=== PATIENT | male | born 1950 | race Caucasian/White ===

== ENCOUNTER 2018-12-10 05:37 | Emergency (ER) | payer MEDICARE, OTHER ==
[~2018-12-10] VITALS: Ht 167.6 cm; Wt 93.0 kg
[~2018-12-10 05:37] MED LIST: ASCORBIC ACID500 M3 PO; ASPIRIN EC81 MG PO; AUGMENTIN 875-1 EACH PO; AVAPRO300 MG PO; B-12500 MCG PO; BICALUTAMIDE50 MG PO; CARDURA1 MG PO; CIPROFLOXACIN250 MG PO; CO Q-10100 MG PO; COLACE100 MG PO; COQ10 SG 100 S1 EACH PO; COZAAR100 MG PO; DILTIAZEM 24HR240 MG PO; DILTIAZEM ER240 MG PO; DOXYCYCLINE HY100 MG PO; DOXYCYCLINE MO100 MG PO; HYDROCHLOROTHIA25 MG PO; HYPROST1 EACH PO; MAGNESIUM CITR296 ML PO; NORCO 5-325 TA1 EACH PO; OXYBUTYNIN CHLOR5 MG PO; OXYCODONE HCL5 MG PO; PROSCAR5 MG PO; THERALITH XR T1 EACH PO; TOLTERODINE TART4 MG PO; TURMERIC500 M2 PO; VITAMIN C WITH500 MG PO
[2018-12-10] MEDS ORDERED: CAL MAG ZINC +1 EAC1 PO (05:48)
[2018-12-10] MEDS ORDERED: VITAMIN E100 UNI3 PO (05:49)
[2019-03-07] MEDS ORDERED: CASODEX50 MG PO (14:34)
[2019-03-07] MEDS ORDERED: VITAMIN C500 M1 PO (15:11)
[2019-03-09] MEDS ORDERED: ASPIRIN81 MG PO (09:33)
[2019-03-09] MEDS ORDERED: LIPITOR40 MG PO (09:34)
== END 2018-12-10 06:56 | disposition home or self-care (01) ==
LOC: ED 05:37
DX: R04.0 Epistaxis (principal); I10 Essential (primary) hypertension; Z79.899 Other long term (current) drug therapy
CPT/HCPCS: 30901; 85025; 85610; 85730; 99283-25

== ENCOUNTER 2020-07-01 19:01 | Emergency (ER) | payer MEDICARE, OTHER ==
[~2020-07-01] VITALS: Ht 167.6 cm; Wt 90.9 kg
[~2020-07-01 19:01] MED LIST changes: +ASPIRIN81 MG PO; +CAL MAG ZINC +1 EAC1 PO; +CASODEX50 MG PO; +LIPITOR40 MG PO; +VITAMIN C500 M1 PO; +VITAMIN E100 UNI3 PO
[2020-07-01] MEDS ORDERED: AUGMENTIN 875-1 EACH PO (22:43)
== END 2020-07-01 23:00 | disposition home or self-care (01) ==
LOC: ED 19:01
DX: S02.2XXA Fracture of nasal bones, initial encounter for closed fracture (principal); W22.8XXA Striking against or struck by other objects, initial encounter; I10 Essential (primary) hypertension; Z79.899 Other long term (current) drug therapy; Z85.46 Personal history of malignant neoplasm of prostate
CPT/HCPCS: 70450; 70486; 90471; 90715; 99284-25

== ENCOUNTER 2021-03-14 14:18 | Emergency (ER) | payer MEDICARE, OTHER ==
[2021-03-14] MEDS ORDERED: FUROSEMIDE20 MG PO (14:40)
[2021-03-14] MEDS ORDERED: DILTIAZEM ER360 MG PO (14:41)
[2021-03-14] MEDS ORDERED: IRBESARTAN300 MG PO (14:41)
[2021-03-14] MEDS ORDERED: ATORVASTATIN CA40 MG PO (14:41)
[2021-03-14] MEDS ORDERED: HYDROCHLOROTHIA25 MG PO (14:41)
--- NOTE | 2021-03-15 21:57 | EKG ---
[facility] [address] [place] [address] Signed Wide QRS rhythm Minimal voltage criteria for LVH, may be normal variant ( Peter product ) Septal infarct , age undetermined Inferior infarct , age undetermined Abnormal ECG When compared with ECG of 07-MAR-2019 07:17, Wide QRS rhythm has replaced Sinus rhythm Confirmed by LEON RICHTER MD ([id number]) on 03/15/2021 9:57:17 PM Electronically Signed By: LEON RICHTER MD 03/15/21 2157 PATIENT NAME: DANNA ORDOÑEZ ELVI Electrocardiogram DATE OF : 50 PHYSICIAN: LEON RICHTER MD REPORT #: [id number] REPORT IS CONFIDENTIAL AND NOT TO BE RELEASED WITHOUT AUTHORIZATION
== END 2021-03-14 17:00 | disposition home or self-care (01) ==
LOC: ED 14:18
DX: G45.9 Transient cerebral ischemic attack, unspecified (principal); I10 Essential (primary) hypertension; Z79.82 Long term (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 aspirin
CPT/HCPCS: 70450; 70496; 70498; 71045; 80053; 85025; 85610; 85730; 93005; 93010; 99284-25; Q3014; Q9967

== ENCOUNTER 2022-01-25 00:41 | Emergency (ER) | payer MEDICARE, OTHER ==
[~2022-01-25] VITALS: Ht 167.6 cm; Wt 90.9 kg
[~2022-01-25 00:41] MED LIST changes: +AMIODARONE HCL200 MG PO; +ATORVASTATIN CA40 MG PO; +DILTIAZEM ER360 MG PO; +DILTIAZEM HCL120 MG PO; +DILTIAZEM HCL60 MG PO; +FUROSEMIDE20 MG PO; +IRBESARTAN300 MG PO; +POTASSIUM CHLO10 ME1 PO; +POTASSIUM CHLO20 ME2 PO; +TORSEMIDE20 MG PO; +VITAMIN C1000 MG PO; -VITAMIN C500 M1 PO; +WARFARIN SODIUM5 MG PO
[2022-01-25] MEDS ORDERED: MACROBID 100 M100 MG PO ×2 (03:32→17:01)
[2022-01-25] MEDS ORDERED: DITROPAN XL5 MG PO ×2 (03:35→17:02)
[2022-01-25] MEDS ORDERED: PYRIDIUM200 MG PO (03:35)
[2022-01-25] MEDS ORDERED: PHENAZOPYRIDIN200 MG PO (17:02)
[2022-01-26] MEDS ORDERED: CO Q-10100 MG (09:25)
[2022-01-26] MEDS ORDERED: COQ-10100 MG PO (09:26)
== END 2022-01-25 04:27 | disposition home or self-care (01) ==
LOC: ED 00:41
DX: N39.0 Urinary tract infection, site not specified (principal); N13.30 Unspecified hydronephrosis; I10 Essential (primary) hypertension; Z86.73 Personal history of transient ischemic attack (TIA), and cerebral infarction without residual deficits; Z79.899 Other long term (current) drug therapy
CPT/HCPCS: 36415; 51798; 74176; 80053; 81001; 85025; 87088; 99284-25; J7121

== ENCOUNTER 2022-01-25 16:38 | Inpatient (IN) | payer MEDICARE, OTHER ==
[~2022-01-25] VITALS: Ht 167.6 cm; Wt 85.3 kg
[~2022-01-25 16:38] MED LIST changes: +DITROPAN XL5 MG PO; +MACROBID 100 M100 MG PO; +PYRIDIUM200 MG PO
--- OUTSIDE RECORDS SUMMARY | 2022-01-25 16:46 | XMS ---
PreManage Notification: DANNA ORDOÑEZ Security Client Support Coordinator Events No recent Security Events currently on file CRITERIA MET - [facility] - 2 Visits in 30 Days CARE PROVIDERS [facility] Current PHONE: Unknown Jair has no Care Guidelines for this patient. EReanna VISIT COUNT (12 MO.) 3 [facility] TOTAL 3 NOTE: Visits indicate total known visits. 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
[2022-01-25] MEDS ORDERED: MACROBID 100 M100 MG PO (17:01)
[2022-01-25] MEDS ORDERED: DITROPAN XL5 MG PO (17:02)
[2022-01-25] MEDS ORDERED: PHENAZOPYRIDIN200 MG PO (17:02)
--- NOTE | 2022-01-25 20:02 | NUR ---
BEDSIDE REPORT FROM ER NURSE. THIS NURSE TRANSPORTING PATIENT TO ROOM 121 MED-SURG. HANDOFF DONE PER [facility] POLICY WITH FLOWSHEET.
--- NOTE | 2022-01-25 20:15 | NUR ---
pt ARRIVED TO [facility] FLOOR FROM ED STRETCHER WITH PRIMARY RN TRISTON. pt AWAKE AND RESTING IN BED, ALSO IN ROOM. ADMISSION COMPLETE. pt REPORTS NEED TO VOID, UP 1PA TO BCS. SMALL INCONTINENT NOTED IN BRIEFS ALONG WITH SCANT DRIBBLING ON FLOOR. NO VOID IN COMMODE. SCHEDULED MEDS AND IV FLUIDS GIVEN-SEE EMAR. IV SITE WNL, BRISK BLOOD RETURN NOTED. PRN TYLENOL ALSO GIVEN FOR GENERAL ACHES AND PAIN IN BACK REPORTS 05/09. BED ALARM RESUMED FOR SAFETY AND pt ORIENTED TO ROOM WITH CALL LIGHT IN REACH. pt REPORTS USING CPAP MACHINE, TO BRING IT IN TOMORROW MORNING. PER , "HE'LL SKIP IT SOMETIMES IF WE'RE LIKE ON VACATION". HOSPITAL PROVIDED CPAP OFFERED, BUT DECLINED BY pt. WILL MONITOR.
--- NOTE | 2022-01-25 21:45 | NUR ---
PATIENT CALLING FREQUENTLY TO USE BSC, FEELS URGENCY TO URINATE. PATIENT COMPLAINTS OF BURNING FEELING. ADMINISTERED AZO PER MAR PO AND MELATONIN PO TO ASSIST WITH SLEEP. PATIENT MARI PAD CHANGED. PROVIDED EDUCATION ON SYMPTOMS OF UTI, AND THE POSSIBLE INCREASED FEELINGS OF URGENCY. PATIENT VERBALIZED UNDERSTANDING. WHEN UP TO BSC, PATIENT NOT FOLLOWING DIRECTION WELL, APPEARS CONFUSED. NEEDS 1 PERSON STBY ASSIST. BED ALARM ON. CALL TO DR. ROMEO VERIFIED NO ORDER FOR TELE, AND ADDRESSED PATIENT'S REQUEST FOR PATIENT TO HAVE AMBRIZ. BLADDER SCAN REFLECTED <[address] RICHTER VERBALIZED NO AMBRIZ AT THIS TIME. AT BASELINE PATIENT IS INCONTINENT 95% OF THE TIME. UPDATED PATIENT'S WHO VERBALIZED UNDERSTANDING.
--- NOTE | 2022-01-25 22:44 | NUR ---
PATIENT SLEEPING WITH EYES CLOSED. APPEARS RELAZED. CALL LIGHT WITHIN REACH. BED ALARM ON.
--- NOTE | 2022-01-25 23:30 | NUR ---
ROUNDING ON PATIENT AND NOTED APPEARED RESTLESS. PATIENT REQUESTED TO GET UP TO BSC. PROVIDED ASSISTANCE. ATTEND AND INSERT PAD SATURATED WITH URINE. PATIENT FOLLOWING DIRECTIONS IMPROVED. PATIENT STATES " I THINK I AM STARTING TO FEEL BETTER". ORAL TEMP 99.6, NOTED PILLOW CASE SATURATED WITH MOISTURE. CHANGED PILLOWCASE. PATIENT SKIN FEELS COOL TO TOUCH.
--- NOTE | 2022-01-26 00:03 | NUR ---
PATIENT CALLED TO GET UP TO BSC. TRANSFERED WITH KISHAN LITTLEJOHN. ATTEND SATURATED WITH URINE, FOUL ODOR, APPEARS DARK YELLOW STAINING IN PAD. BACK TO BED, BED ALARM ON. NO OTHER NEEDS AT THIS TIME.
--- NOTE | 2022-01-26 00:16 | NUR ---
NOTIFIED DR. RICHTER THAT HR CONTINUES TO SUSTAIN IN 120s, FLUCTUATING BRIEFLY INTO THE LOW 100'S THEN INCREASES BACK TO 120s. NEW ORDER TO ADMINISTER ADDITIONAL 1X DOSE OF LOPRESSOR 5MG IV.
--- NOTE | 2022-01-26 01:51 | NUR ---
PATIENT UP TO BSC, PAD SATURATED. PROVIDED MARI CARE AND NEW MARI PAD. PATIENT BACK TO BED, DENIES ANY OTHER NEEDS. BED ALARM ON, CALL LIGHT WITHIN REACH.
--- NOTE | 2022-01-26 01:56 | NUR ---
PATIENT AFEBRILE, APPEARS TO BE FOLLOWING DIRECTIONS WITH STBY ASSIST TO BSC. URINATING FREQUENTLY, INCONTINENT. IV FLUIDS INFUSING D5 1/2 NS @ 100 ML/HR. LUNG SOUNDS DIMINISHED IN BASES, NOTED FINE CRACKLES ON LLL. PATIENT DENIES ANY NEEDS AT THIS TIME, APPEARS TO BE RESTING BACK WITH EYES CLOSED. BED ALARM ON, CALL LIGHT WITHIN REACH. HAS BEEN CALLING KERRI.
--- NOTE | 2022-01-26 03:35 | NUR ---
IN TO ASSIST PT WITH ATTENDS
--- NOTE | 2022-01-26 05:12 | NUR ---
PATIENT CALLED TO GET UP TO BSC, PATIENT TRANSFERED, APPEAING INCREASED STEADINESS ON FEET. VS WNL. MARI PAD SATURATED WITH ORANGE URINE. CHANGED LINEN. LUNG SOUNDS DIMINISHED THROUGHOUT. NO COMPLAINTS OF PAIN, AFEBRILE. LAB INTO ROOM TO DRAW PATIENT LABS.
--- NOTE | 2022-01-26 07:03 | NUR ---
REPORT RECEIVED FROM CARMEN GOLDSTEIN. PT RESTING IN BED, AWAKE AND ALERT. PT SATURATED WITH URINE. PUMP ALARMING, IV FLUIDS COMPELTE. PT UP TO RESTROOM WITH STAND BY ASSIST FOR LINE AND TUBE MANAGEMENT, BMAT LEVEL 3. PT VOIDS ADDITOINAL 100ML ORANGE URINE. MARI CARE DONE. DEPENDS CHAGNED. PT UP TO CHAIR. WARM BLANKETS PROVIDED. NEW IV FLUIDS HUNG. PT DENIES ADDITIONAL REQUESTS OR COMPLAINTS. CALL LIGHT WIHTIN REACH.
--- NOTE | 2022-01-26 07:38 | NUR ---
PT ASLEEP IN BED. WHITE BOARD UPDATED. CALL LIGHT IN REACH. NO FURTHER NEEDS AT THIS TIME.
--- NOTE | 2022-01-26 07:55 | EKG ---
[facility] [address] [place] [place] [address] Signed Normal sinus rhythm Left axis deviation Nonspecific intraventricular block Minimal voltage criteria for LVH, may be normal variant ( [place] product ) Inferior infarct , age undetermined Cannot rule out Anterior infarct , age undetermined T wave abnormality, consider lateral ischemia Abnormal ECG When compared with ECG of 14-MAR-2021 14:23, Sinus rhythm has replaced Wide QRS rhythm Vent. rate has increased BY 41 BPM Confirmed by LEON RICHTER MD ([id number]) on 01/26/2022 7:55:15 AM Electronically Signed By: LEON RICHTER MD 01/26/22 0755 PATIENT NAME: DANNA ORDOÑEZ ELVI Electrocardiogram DATE OF : 50 PHYSICIAN: LEON RICHTER MD REPORT #: [id number] REPORT IS CONFIDENTIAL AND NOT TO BE RELEASED WITHOUT AUTHORIZATION
--- NOTE | 2022-01-26 08:34 | NUR ---
MORNING ASSESSMENT AND MEDICAITON DUE. PT FOUND UP IN RESTROOM ON HIS OWN ATTEMPTING TO CHANGE HIS BRIEF. PT EDUCATION DONE REGARDING FALL PREVENTION. PT ASSISTED WITH MARI CARE AND DEPENDS CHANGE. STAND BY ASSIST BACK TO CHAIR. CHAIR ALARM PLACED. PT DENIES PAIN AND NAUSEA. PT ALERT AND OREINTED TO ALL. PT MILDY SLOW TO RESPOND. TREMORS NOTED IN BILATERAL HANDS. PT REPORTS TREMORS HAVE BEEN INCREASING LATELY. GENERALIZED WEAKNESS AND UNSTEAEDINESS ON FEET. DRESSING TO IV SITE LOOSE, DRESSING CHANGED PER PROTOCOL. LUNG SOUNDS CLEAR, HEART TONES REGULAR, MURMUR HEARD. ABDOMEN SOFT AND NON TENDER. BOWEL TONES ACTIVE. PT REPORTS MILD ABDOMINAL SWELLING. PT CONTINUES TO BE INCONTANT. PT DENIES BURNING WITH URINATION. DR RICHTER TO BEDSIDE TO REVIEWED PLAN OF CARE AND ROUND ON PT. PTS ARRIVED TO BEDSIDE, PT AND UPDATED ON PLAN OF CARE AND STATE THEIR QUESTIONS HAVE BEEN ANSWERED. PT EATING BREAKFAST. NO ADDITONAL REQUESTS OR COMPLAINTS. CALL LIGHT WITHIN REACH. CHAIR ALARM ON.
[2022-01-26] MEDS ORDERED: CO Q-10100 MG (09:25)
[2022-01-26] MEDS ORDERED: COQ-10100 MG PO (09:26)
--- NOTE | 2022-01-26 09:35 | NUR ---
PT CALLED TO USE RESTROOM. NOW BACK TO CHAIR VISITING WITH FAMILY IN THE ROOM. CALL LIGHT IN REACH. NO FURTHER NEEDS AT THIS TIME.
--- NOTE | 2022-01-26 10:06 | NUR ---
THIS RN TO ROOM TO CHECK ON PT. PT UP TO RESTROOM WITH STAND BY ASSIST, DEPENDS CHANGED. MARI CARE DONE BY PT WITH MINIMAL ASSISTANCE. PT INCONTINANT ONCE AGAIN. STAND BY ASSIST BACK TO CHAIR. IV FLUID RATE CHANGED PER MD ORDER. PT DENIES PAIN AND NASUEA. NO ADDITONAL REQUESTS OR COMPLAINTS. CALL LIGHT WITHIN REACH. CHAIR ALARM ON.
--- NOTE | 2022-01-26 10:28 | NUR ---
THIS RN TO ROOM TO CHECK ON PT. PT REMAINS UP TO CHAIR, FINISHED WITH BREAKFAST. ICE WATER REFILLED.PT DENIES PAIN AND NAUSEA. DEPENDS DRY AT THIS TIME. NO ADDITIONAL REQUESTS OR COMPLAINTS. CALL LIGHT ISHA HARGROVE. CHAIR ALARM ON.
--- NOTE | 2022-01-26 10:53 | NUR ---
CHAIR ALARM SOUNDING. PT UP IN ROOM TYRING TO GO TO RESTROOM, CAUGHT UP IN IV LINE. THIS RN TO ROOM, 1 PERSON ASSIST TO RESTROOM FOR LINE AND TUBE MANAGEMENT. PT VOIDS 25 IN URINAL. DEPENDS WET. MARI CARE DONE. DEPENDS CHANGED. 1 PERSON ASSIST BACK TO CHAIR. CHAIR ALARM ON. CALL LIGHT WITHIN REACH. PT DENIES ADDITIONAL REQUESTS OR COMPLAINTS.
--- NOTE | 2022-01-26 11:30 | NUR ---
THIS RN TO ROOM TO CHECK ON PT. PT RESTING IN CHAIR WITH EYES CLOSED. RESPRIATIONS EVEN AND UNLABORED. CHAIR ALARM ON. PT ALLOWED TO REST. CALL LIGHT WITHIN REACH.
--- NOTE | 2022-01-26 11:55 | NUR ---
LUNCH DELIVERED TO PT. PT UP TO CHAIR, AWAKENS WITH MOVEMENT IN THE ROOM. PT ASSISTED WITH MEAL TRAY PREP. PT FEEDING SELF. PT DENIES PAIN AND NAUSEA. NO ADDITIONAL NEEDS AT THIS TIME. CALL LIGHT WITHIN REACH. CHAIR ALARM ON.
--- NOTE | 2022-01-26 11:58 | NUR ---
THIS RN TO ROOM TO CHECK ON PT. PT UP TO CHAIR. PT REPORTS NEED TO USE RESTROOM. 1 PERSON ASSIST FOR LINE MANAGEMENT UP TO RESTROOM. MARI CARE DONE. DEPENDS CHANGED. PT ATTEMPTS TO VOID ADDITIONAL BUT IS UNABLE TO. PT UP TO AMBULATE IN XIONG X 2 LAPS. PT BACK TO ROOM AND UP TO CHAIR FOR LUNCH. CHAIR ALARM ON. ICE WATER REFILLED. PT DENIES ADDITIONAL REQUESTS OR COMPLAINTS. CALL CEE GRECO. AT BEDSIDE. CHAIR ALARM ON.
--- NOTE | 2022-01-26 12:53 | NUR ---
THIS RN TO ROOM TO CHECK ON PT. PT REQEUSTS TO GET UP TO RESTROOM. STAND BY ASSIST FOR IV POLE MANAGEMENT UP TO RESTROOM. DEPENDS CHANGED. MARI CARE DONE BY PT. PT DECLINES NAP IN BED AND REQUESTS TO GET BACK TO CHAIR. ICE WATER REFILLED. NO ADDITIONAL NEEDS AT THIS TIME. PT CONTINUES TO DENY PAIN AND NAUSEA. CALL LIGHT WITHIN REACH. CHAIR ALARM ON.
--- NOTE | 2022-01-26 14:52 | NUR ---
CHAIR ALARM SOUNDING. PT GETTING UP TO RESTROOM ON HIS OWN.L AFTERNOON ASSESSMENT DUE. PT REQUESTS ASSISTANCE UP TO RESTROOM. STAND BY ASSIST FOR LINE MANAGEMENT UP TO RESTROOM. MARI CARE DONE. DEPENDS SATURATED, CHANGED. PT VOIDS ADDITIONL 50ML ORANGE URINE. STAND BY ASSIST BACK TO CHAIR. PT DENIES PAIN AND NAUSEA. PT CONTINUES TO BE SLOW TO RESPOND BUT DOES ANSWER QUESTIONS APPROPRIATLY. TREMORS UNCHANGED. PT GENERALLY STEADY ON FEET BUT TAKES TIME TO GET MOVING AND HAS A SLIGHTLY STAGARED GAIT. LUGN SOUNDS CLEAR. HEART MURMUR UNCHANGED. EDEMA TO BLE UNCHANGED. PT ENCORUAGED TO ELEVATE LEGS, PT AGREEES. PT REPORTS "A LITTLE" BURNING WITH URINATION "SOMETIMES." BUT STATES "IT'S A LOT BETTER THAN YESTERDAY." ABDOMEN SOFT AND NON TENDER. BOWEL TONES ACTIVE. PT DENIES ADDITIONAL REQUESTS OR COMPLAINTS. FAMILY AT BEDSIDE. CALL LIGHT [employer] REACH. CHAIR ALARM ON.
--- NOTE | 2022-01-26 15:44 | NUR ---
HOULRY ROUNDING: PT RESTING IN CHAIR WITH EYES CLOSED, RESPIRATIONS EVEN AND UNLABORED. PTS AT BEDSIDE AND STATES PT IS COMFORTABLE AND DOES NOT HAVE NEEDS AT THIS TIME. CALL LIGHT WITHIN REACH. CHAIR ALARM ON.
--- NOTE | 2022-01-26 15:57 | NUR ---
PT CALL LIGHT ON. PTS REPORTS PT NEEDS TO VOID. PT UP WITH STAND BY ASSIST TO RESTROOM. DEPENDS SATURATED. MARI CARE DONE DEPENDS CHANGED. PT ATTEMPTS TO VOID ADDITOINAL URINE BUT IS UNABLE. STAND BY ASSIST BACK TO CHAIR. EDUCATION DONE WITH PT AND FAMILY REGARDING DISEASE PROCESS AND PLAN OF CARE. PT AND FAMILY STATE THEIR QUESTIONS HAVE BEEN ANSWERE. NO ADDITONAL NEEDS AT THIS TIME. ICE WATER REFILLED. CALL LIGHT WIHTIN REACH. CHAIR ALARM ON.
--- NOTE | 2022-01-26 16:32 | NUR ---
PT CALL LIGHT ON. PTS STATES SHE IS LEAVING FOR THE DAY. PT REQUESTS TO USE RESTROOM. DEPENDS WET, MARI CARE DONE, FRESH DEPENDS IN PLACE. PT ATTEMPTS TO VOID ADDITIONAL URIN IN RESTROOM BUT IS UNABLE TO. STAND BY ASSIST BACK TO CHAIR. LEGS ELEVATED. PT DENIES ADDITIONAL REQUESTS OR COMPLAINTS. CALL LIGHT WIHTIN REACH. CHAIR ALARM ON.
--- NOTE | 2022-01-26 16:34 | NUR ---
PT HERE FOR SEPSIS RELATED TO UTI. PT UP WITH STAND BY ASSIST FOR LINE MANAGEMENT TO RESTROOM THIS SHIFT, VERY FREQUENT VOIDS AND DEPENDS CHANGES. PT OCCATIONALLY ABLE TO VOID IN URINAL WELL. PT TOLERATING REGULAR DIET WITH GOOD APPITITE. PT REMAINS AFBRIAL SO FAR THIS SHIFT. IV ABX GIVEN. PT REPORTS BURNING WITH URINATION HAS IMPROVED AND IS ALMOST GONE. MILD HAND TREMORS, SLOW RESPONSES AND STAGGERING GAIT UNCHANGED. IV FLUID RATE SLOWED. PTS AT BEDSIDE FOR MOST OF SHIFT. PT VOIDING QUANITTY SUFFICIENT. PT USES CALL LIGHT INTERMITTANTLY, CHAIR ALARM FOR SAFETY.
--- NOTE | 2022-01-26 17:27 | NUR ---
THIS RN TO ROOM TO CHECK ON PT. PT UP TO CHAIR, EATING DINNER. PT REQUESTS ORANGE JUICE AND ICE WATER, PROVIDED. MEDICATION GIVEN. PT SWALLOWS WITHOUT ISSUE. PT DENIES PAIN AND NAUSEA. NO ADDITIONAL RQEUESTS OR COMPLAINTS. CALL LIGHT IPDIAIN REACH. CHAIR ALARM ON.
--- NOTE | 2022-01-26 18:38 | NUR ---
THIS RN TO ROOM TO CHECK ON PT. PT RESTING IN CHAIR WITH EYES CLOSED. RESPIRATIONS EVEN AND UNLABORED. CALL LIGHT WITHIN REACH. CHAIR ALARM ON. PT ALLOWED TO REST.
--- NOTE | 2022-01-26 19:30 | NUR ---
REPORT FROM FERMIN, PT IS CURRENTLY SLEEPING IN RECLINER, CHAIR ALARM ON FOR PT SAFETY. NO CURRENT CONCERNS NO APPARENT DISTRESS.
--- NOTE | 2022-01-26 20:30 | NUR ---
PT RESTING IN BED, EYES CLOSED, HE IS ALERT NOW TO RN AT BEDSIDE FOR HS ROUNDING, MEDS AND ASSESSMENT. HE IS COOPERATIVE WITH ALL CARE, PRN'S ALSO PROVIDED FOR COMFORT. SEE MAR, HE REPORTS THAT BURNING WITH VOIDNG IS MUCH IMPROVED THIS EVENING, ONLY MILD DISCOMFORT. NO NEW CONCERNS FROM SHIFT REPORT.
--- NOTE | 2022-01-26 23:10 | NUR ---
PT RESTING IN BED ON HIS RIGHT SIDE WITH HIS EYES CLOSED. NO DISTRESS NOTED.
--- NOTE | 2022-01-27 01:25 | NUR ---
PT USED CALL LIGHT TO CALL NURSES STATION TO REQUEST ASSISTANCE WITH VOIDING, PT AMBULATED SLOW AND STEADY, WITH SHUFFLE STEPS, STANDBY ASSIST. PT HAD LARGE INCONT IN BRIEFS AND ALSO VOIDED 100ML IN URINAL. FRESH WATER PROVIDED, PT HAS NO OTHER CONCERNS OR REQUESTS AT THIS TIME.
--- NOTE | 2022-01-27 03:35 | NUR ---
CALL LIGHT ANSWERED. SBA TO RESTROOM. pt WITH SHUFFLING GAIT, STEADY. INCONTINENT VOID, SATURATED MARI PAD AND ATTENDS, ADDITIONAL DRIBBLING ON FLOOR. pt CLEANED WITH WIPES, ATTENDS CHANGED, GOWN CHANGED. BACK IN BED. IVF INFUSING WNL. HANDS STAINED WITH URINE FROM MEDICATIONS, WIPES PROVIDED FOR pt TO CLEAN HANDS. CALL LIGHT IN REACH.
--- NOTE | 2022-01-27 04:55 | NUR ---
PT USED CALL LIGHT TO REQUEST ASSISTANCE TO BATHROOM TO VOID. PT TOLERATED ACTIVITY WELL, SLOW SHORT SHUFFLE TYPE STEPS, STEADY BALANCE. PT HAD INCONT. IN DEPENDS LARGE AMOUNT. AM V/S, I/O AND ASSESSMENT COMPLETE.
--- NOTE | 2022-01-27 05:06 | NUR ---
PT HAS SLEPT WELL OVER SHIFT WITH UP TO BATHROOM EVERY 3-4 HOURS OVER SHIFT, INCONT IN DEPENDS, HE REPORTS NO GENERAL PAIN AND BURNING WITH VOIDS IS MUCH IMPROVED. HE HAS BEEN COOPERATIVE WITH ALL CARE. NO NEW CONCERNS OVER SHIFT.
--- NOTE | 2022-01-27 07:20 | NUR ---
REPORT RECEIVED FROM CARMEN LOPEZ. PT RESTING IN BED. AWAKE AND ALERT. HEAD OF BED ELEVATED TO 20 DEGREES. PT DENIES PAIN AND NAUSEA. NO ADDITIONAL REQUESTS OR COMPLAINTS. CALL LIGHT WIHTIN REACH. BED RAILS UP.
[2022-01-27] MEDS ORDERED: CEFPODOXIME PR100 MG PO (08:22)
--- NOTE | 2022-01-27 08:53 | NUR ---
MORNING ASSESSMENT AND MEDICATION DUE. PT REPORTS NEED TO USE THE RESTROOM. MARI CARE DONE. DEPENDS SATURATED, DEPENDS CHANGED. PT ASSISTS WITH CARES. STAND BY ASSIST BACK TO CHAIR. PT DENIES PAIN AND NAUSEA. PT ALERT AND OREINTED TO ALL. RESPONDING MORE QUICKLY TO QUESTIONS TODAY. PT ALSO SEEMS TO BE MOVING MORE SMOOTHLY. MILD TREMORS CONTINUE IN HANDS AND FEET. PT ALERT AND OREINTED TO ALL. LUNG SOUNDS CLEAR. HEART TONES REGULAR WITH BASELINE MURMUR. LOWER EXTREMITY EDEMA UNCHANGED. ABDOMEN SOFT AND NON TENDER. BOWEL TONES ACTIVE. NO DISTENTION NOTED. PT DENIES ANY BURNING WITH URINATION. PT REPORTS FEELING MORE ENERGETIC TODAY. PT CARRYING ON CONVERSATIONS AND MORE INVOLVED WITH CARES. DISCHRAGE INSTRUCTIONS REVEIWED WITH PT AND PTS IN DETAIL. PT AND VERBALIZE UNDERSTANDING OF INSTRUCTIONS, MEDICATIONS, AND FOLLOW UP. PHARMACIST TO BEDSIDE TO REVIEW MEDICATIONS. PT AND STATE THEIR QUESTIONS HAVE BEEN ANSWERED. IV ABX INFUSION AND THEN PT WILL BE READY FOR DISCHARGE. NO ADDITIONAL REQUESTS OR COMPLAINTS. CALL LIGHT WITHIN REACH.
--- NOTE | 2022-01-27 09:50 | NUR ---
IV PUMP ALARMING INFUSION AND FLUSH COMPELTE. IV FLUSHED AND DC'D PER PROTOCOL. GAUZE AND COBAN APPLIED. PT UP TO DRESS SELF, NO ASSISTANC NEEDED. PT USES RESTROOM AND CHANGES DEPENDS ONE MORE TIME. PT WHEELED FROM MED/SURG. NO ADDITIONAL REQUESTS OR CONCERNS.
== END 2022-01-27 09:50 | disposition home or self-care (01) | DRG 871 ==
LOC: ED 16:38 → MS 18:42
PROVIDERS: ADMIT Internal Medicine; ATTEND Internal Medicine
DX: A41.9 Sepsis, unspecified organism (principal); G93.41 Metabolic encephalopathy; N39.0 Urinary tract infection, site not specified; I42.9 Cardiomyopathy, unspecified; Z20.822 Contact with and (suspected) exposure to COVID-19; E87.6 Hypokalemia; I10 Essential (primary) hypertension; G47.33 Obstructive sleep apnea (adult) (pediatric); G20 Parkinson's disease; F02.80 Dementia in other diseases classified elsewhere, unspecified severity, without behavioral disturbance, psychotic disturbance, mood disturbance, and anxiety; Z95.4 Presence of other heart-valve replacement; Z86.73 Personal history of transient ischemic attack (TIA), and cerebral infarction without residual deficits; Z85.46 Personal history of malignant neoplasm of prostate; Z92.3 Personal history of irradiation; Z90.79 Acquired absence of other genital organ(s); Z79.82 Long term (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 aspirin; Z79.899 Other long term (current) drug therapy
CPT/HCPCS: 36415; 51701; 71045; 80048; 80053; 83605; 83880; 85025; 85610; 85730; 87040; 87088; 87186; 87502; 93005; 93010; 99285-25; A9270; C9803; J0696; J3480; U0003

== ENCOUNTER 2022-03-04 09:22 | Emergency (ER) | payer MEDICARE, OTHER ==
[~2022-03-04] VITALS: Ht 167.6 cm; Wt 95.0 kg
[~2022-03-04 09:22] MED LIST changes: +CEFPODOXIME PR100 MG PO; +CO Q-10100 MG; +COQ-10100 MG PO; +PHENAZOPYRIDIN200 MG PO
[2022-03-04] MEDS ORDERED: LEVOFLOXACIN750 MG PO (10:31)
--- NOTE | 2022-03-04 21:41 | EKG ---
[facility] [address] [place] [address] Signed Sinus rhythm with 1st degree AV block with premature supraventricular complexes Left axis deviation Nonspecific intraventricular block Minimal voltage criteria for LVH, may be normal variant ( Peter product ) Cannot rule out Septal infarct (cited on or before 14-MAR-2021) Possible Lateral infarct (cited on or before 14-MAR-2021) Inferior infarct (cited on or before 14-MAR-2021) Abnormal ECG When compared with ECG of 25-JAN-2022 17:01, premature supraventricular complexes are now present Confirmed by Rohan Rivera MD () on 03/04/2022 9:41:31 PM Electronically Signed By: ROHAN RIVERA MD 03/04/22 214 PATIENT NAME: DANNA ORDOÑEZ SAXON Electrocardiogram DATE OF : 50 PHYSICIAN: ROHAN RIVERA MD REPORT #: [id number] REPORT IS CONFIDENTIAL AND NOT TO BE RELEASED WITHOUT AUTHORIZATION
== END 2022-03-04 10:50 | disposition home or self-care (01) ==
LOC: ED 09:22
DX: J18.9 Pneumonia, unspecified organism (principal)
CPT/HCPCS: 36415; 71045; 80053; 83735; 84484; 85025; 93005; 93010; 99285-25

== ENCOUNTER 2022-09-17 16:05 | Emergency (ER) | payer MEDICARE, OTHER ==
[~2022-09-17] VITALS: Ht 167.6 cm; Wt 96.2 kg
--- OUTSIDE RECORDS SUMMARY | ~2022-09-17 | XMS | Continuity of Care Document ---
Demographics + + + | Address | [address] | | | [place] [address] | + + + | Preferred Language | Unknown | + + + | Marital Status | | + + + | Congregational Affiliation | Unknown | + + + | Race | White | + + + | Ethnic Group | Not or | + + + Author + + + | Author | [facility] | + + + | Organization | [facility] | + + + | Address | [address] | | | [place] [address] | + + + | Phone | | + + + Care Team Providers + + + + | Care Cap Sizer Name | Role | Phone | + + + + Unavailable | Unavailable | + + + + Unavailable | Unavailable | + + + + Unavailable | Unavailable | + + + + Unavailable | Unavailable | + + + + Unavailable | Unavailable | + + + + Unavailable | Unavailable | + + + + Allergies and Intolerances + + + + + + | date | description | facility | reaction | severity | + + + + + + | (no date) | No Known | [facility] | (no reaction) | (no severity) | | | Allergies | | | | + + + + + + Encounters No information. Functional Status No information. Immunizations + + + + | date | description | facility | + + + + | 2020-07-01 00:00 | Tdap | [facility] | + + + + | 2020-07-01 00:00 | Tdap | [facility] | + + + + | 2020-07-01 00:00 | Tdap | [facility] | + + + + | 2020-07-01 00:00 | Tdap | [facility] | + + + + Medications + + + + | date | description | facility | + + + + | 2022-01-25 00:00 | DOXAZOSIN MESYLATE | [facility] | + + + + | 2022-01-27 00:00 | DOXAZOSIN MESYLATE | [facility] | + + + + | 2022-03-04 00:00 | DOXAZOSIN MESYLATE | [facility] | + + + + | 2022-06-09 00:00 | DOXAZOSIN MESYLATE | [facility] | + + + + | 2022-09-15 00:00 | DOXAZOSIN MESYLATE | [facility] | + + + + | 2022-01-25 00:00 | OXYCODONE HCL | [facility] | + + + + | 2022-01-27 00:00 | OXYCODONE HCL | [facility] | + + + + | 2022-03-04 00:00 | OXYCODONE HCL | [facility] | + + + + | 2022-06-09 00:00 | OXYCODONE HCL | [facility] | + + + + | 2022-09-15 00:00 | OXYCODONE HCL | [facility] | + + + + | 2013-06-04 00:00 | MAGNESIUM CITRATE | [facility] | + + + + | 2013-06-04 00:00 | MAGNESIUM CITRATE | [facility] | + + + + | 2013-06-04 00:00 | MAGNESIUM CITRATE | [facility] | + + + + | 2013-06-04 00:00 | MAGNESIUM CITRATE | [facility] | + + + + | 2022-01-25 00:00 | BICALUTAMIDE | [facility] | + + + + | 2022-01-27 00:00 | BICALUTAMIDE | [facility] | + + + + | 2022-03-04 00:00 | BICALUTAMIDE | [facility] | + + + + | 2022-06-09 00:00 | BICALUTAMIDE | [facility] | + + + + | 2022-09-15 00:00 | BICALUTAMIDE | [facility] | + + + + | 2022-01-25 00:00 | PHENAZOPYRIDINE HCL | [facility] | + + + + | 2022-01-25 00:00 | PHENAZOPYRIDINE HCL | [facility] | + + + + | 2022-01-25 00:00 | PHENAZOPYRIDINE HCL | [facility] | + + + + | 2022-01-25 00:00 | PHENAZOPYRIDINE HCL | [facility] | + + + + | 2022-01-25 00:00 | Turmeric Root Extract | [facility] | + + + + | 2022-01-27 00:00 | Turmeric Root Extract | [facility] | + + + + | 2022-03-04 00:00 | Turmeric Root Extract | [facility] | + + + + | 2022-06-09 00:00 | Turmeric Root Extract | [facility] | + + + + | 2022-09-15 00:00 | Turmeric Root Extract | [facility] | + + + + | 2022-01-25 00:00 | [facility] | | | CIT | | + + + + | 2022-01-27 00:00 | VIT B6/MAG [facility] & OX/POTASS | [facility] | | | CIT | | + + + + | 2022-03-04 00:00 | [facility] | [facility] | | | CIT | | + + + + | 2022-06-09 00:00 | VIT B6/MAG [facility] & OX/POTASS | [facility] | | | CIT | | + + + + | 2022-09-15 00:00 | VIT B6/MAG [facility] & OX/POTASS | [facility] | | | CIT | | + + + + | 2022-01-25 00:00 | CA CARB/VIT D3/MAG OX/ZN | [facility] | | | OXIDE | | + + + + | 2022-01-27 00:00 | CA CARB/VIT D3/MAG OX/ZN | [facility] | | | OXIDE | | + + + + | 2022-03-04 00:00 | CA CARB/VIT D3/MAG OX/ZN | [facility] | | | OXIDE | | + + + + | 2022-06-09 00:00 | CA CARB/VIT D3/MAG OX/ZN | [facility] | | | OXIDE | | + + + + | 2022-09-15 00:00 | CA CARB/VIT D3/MAG OX/ZN | [facility] | | | OXIDE | | + + + + | 2013-06-04 00:00 | DOCUSATE SODIUM | [facility] | + + + + | 2013-06-04 00:00 | DOCUSATE SODIUM | [facility] | + + + + | 2013-06-04 00:00 | DOCUSATE SODIUM | [facility] | + + + + | 2013-06-04 00:00 | DOCUSATE SODIUM | [facility] | + + + + | 2022-01-25 00:00 | IRBESARTAN | [facility] | + + + + | 2022-01-27 00:00 | IRBESARTAN | [facility] | + + + + | 2022-03-04 00:00 | IRBESARTAN | [facility] | + + + + | 2022-06-09 00:00 | IRBESARTAN | [facility] | + + + + | 2022-09-15 00:00 | IRBESARTAN | [facility] | + + + + | 2014-01-23 00:00 | DOXYCYCLINE HYCLATE | [facility] | + + + + | 2014-01-23 00:00 | DOXYCYCLINE HYCLATE | [facility] | + + + + | 2014-01-23 00:00 | DOXYCYCLINE HYCLATE | [facility] | + + + + | 2014-01-23 00:00 | DOXYCYCLINE HYCLATE | [facility] | + + + + | 2022-01-25 00:00 | DOXYCYCLINE MONOHYDRATE | [facility] | + + + + | 2022-01-27 00:00 | DOXYCYCLINE MONOHYDRATE | [facility] | + + + + | 2022-03-04 00:00 | DOXYCYCLINE MONOHYDRATE | [facility] | + + + + | 2022-06-09 00:00 | DOXYCYCLINE MONOHYDRATE | [facility] | + + + + | 2022-09-15 00:00 | DOXYCYCLINE MONOHYDRATE | [facility] | + + + + | 2022-09-15 00:00 | CARBIDOPA/LEVODOPA | [facility] | + + + + | 2022-01-25 00:00 | CIPROFLOXACIN HCL | [facility] | + + + + | 2022-01-27 00:00 | CIPROFLOXACIN HCL | [facility] | + + + + | 2022-03-04 00:00 | CIPROFLOXACIN HCL | [facility] | + + + + | 2022-06-09 00:00 | CIPROFLOXACIN HCL | [facility] | + + + + | 2022-09-15 00:00 | CIPROFLOXACIN HCL | [facility] | + + + + | 2022-01-25 00:00 | POTASSIUM CHLORIDE | [facility] | + + + + | 2022-01-27 00:00 | POTASSIUM CHLORIDE | [facility] | + + + + | 2022-03-04 00:00 | POTASSIUM CHLORIDE | [facility] | + + + + | 2022-06-09 00:00 | POTASSIUM CHLORIDE | [facility] | + + + + | 2022-09-15 00:00 | POTASSIUM CHLORIDE | [facility] | + + + + | 2022-01-25 00:00 | TORSEMIDE | [facility] | + + + + | 2022-01-27 00:00 | TORSEMIDE | [facility] | + + + + | 2022-03-04 00:00 | TORSEMIDE | [facility] | + + + + | 2022-06-09 00:00 | TORSEMIDE | [facility] | + + + + | 2022-09-15 00:00 | TORSEMIDE | [facility] | + + + + | 2022-01-25 00:00 | ASCORBIC ACID | [facility] | + + + + | 2022-01-27 00:00 | ASCORBIC ACID | [facility] | + + + + | 2022-03-04 00:00 | ASCORBIC ACID | [facility] | + + + + | 2022-06-09 00:00 | ASCORBIC ACID | [facility] | + + + + | 2022-09-15 00:00 | ASCORBIC ACID | [facility] | + + + + | 2022-01-25 00:00 | BICALUTAMIDE | [facility] | + + + + | 2022-01-27 00:00 | BICALUTAMIDE | [facility] | + + + + | 2022-03-04 00:00 | BICALUTAMIDE | [facility] | + + + + | 2022-06-09 00:00 | BICALUTAMIDE | [facility] | + + + + | 2022-09-15 00:00 | BICALUTAMIDE | [facility] | + + + + | 2022-01-25 00:00 | FINASTERIDE | [facility] | + + + + | 2022-01-27 00:00 | FINASTERIDE | [facility] | + + + + | 2022-03-04 00:00 | FINASTERIDE | [facility] | + + + + | 2022-06-09 00:00 | FINASTERIDE | [facility] | + + + + | 2022-09-15 00:00 | FINASTERIDE | [facility] | + + + + | 2022-01-25 00:00 | UBIDECARENONE | [facility] | + + + + | 2022-01-27 00:00 | UBIDECARENONE | [facility] | + + + + | 2022-03-04 00:00 | UBIDECARENONE | [facility] | + + + + | 2022-06-09 00:00 | UBIDECARENONE | [facility] | + + + + | 2022-09-15 00:00 | UBIDECARENONE | [facility] | + + + + | 2022-01-25 00:00 | ASCORBIC ACID | [facility] | + + + + | 2022-01-27 00:00 | ASCORBIC ACID | [facility] | + + + + | 2022-03-04 00:00 | ASCORBIC ACID | [facility] | + + + + | 2022-06-09 00:00 | ASCORBIC ACID | [facility] | + + + + | 2022-09-15 00:00 | ASCORBIC ACID | [facility] | + + + + | 2022-01-25 00:00 | ASPIRIN | [facility] | + + + + | 2022-01-27 00:00 | ASPIRIN | [facility] | + + + + | 2022-03-04 00:00 | ASPIRIN | [facility] | + + + + | 2022-06-09 00:00 | ASPIRIN | [facility] | + + + + | 2022-09-15 00:00 | ASPIRIN | [facility] | + + + + | 2022-01-27 00:00 | CEFPODOXIME PROXETIL | [facility] | + + + + | 2022-01-25 00:00 | HYDROCHLOROTHIAZIDE | [facility] | + + + + | 2022-01-27 00:00 | HYDROCHLOROTHIAZIDE | [facility] | + + + + | 2022-03-04 00:00 | HYDROCHLOROTHIAZIDE | [facility] | + + + + | 2022-06-09 00:00 | HYDROCHLOROTHIAZIDE | [facility] | + + + + | 2022-09-15 00:00 | HYDROCHLOROTHIAZIDE | [facility] | + + + + | 2022-03-04 00:00 | LEVOFLOXACIN | [facility] | + + + + | 2022-03-04 00:00 | LEVOFLOXACIN | [facility] | + + + + | 2022-03-04 00:00 | LEVOFLOXACIN | [facility] | + + + + | 2022-01-25 00:00 | CYANOCOBALAMIN (VITAMIN | [facility] | | | B-12) | | + + + + | 2022-01-27 00:00 | CYANOCOBALAMIN (VITAMIN | [facility] | | | B-12) | | + + + + | 2022-03-04 00:00 | CYANOCOBALAMIN (VITAMIN | [facility] | | | B-12) | | + + + + | 2022-06-09 00:00 | CYANOCOBALAMIN (VITAMIN | [facility] | | | B-12) | | + + + + | 2022-09-15 00:00 | CYANOCOBALAMIN (VITAMIN | [facility] | | | B-) | | + + + + | 2019-03-09 00:00 | ASPIRIN | [facility] | + + + + | 2019-03-09 00:00 | ASPIRIN | [facility] | + + + + | 2019-03-09 00:00 | ASPIRIN | [facility] | + + + + | 2019-03-09 00:00 | ASPIRIN | [facility] | + + + + | 2022-01-25 00:00 | NITROFURANTOIN MONOHYD | [facility] | | | MACROCR | | + + + + | 2022-01-25 00:00 | NITROFURANTOIN MONOHYD | [facility] | | | MACROCR | | + + + + | 2022-01-25 00:00 | NITROFURANTOIN MONOHYD | [facility] | | | MACROCR | | + + + + | 2022-01-25 00:00 | NITROFURANTOIN MONOHYD | [facility] | | | MACROCR | | + + + + | 2022-01-25 00:00 | ATORVASTATIN CALCIUM | [facility] | + + + + | 2022-01-27 00:00 | ATORVASTATIN CALCIUM | [facility] | + + + + | 2022-03-04 00:00 | ATORVASTATIN CALCIUM | [facility] | + + + + | 2022-06-09 00:00 | ATORVASTATIN CALCIUM | [facility] | + + + + | 2022-09-15 00:00 | ATORVASTATIN CALCIUM | [facility] | + + + + | 2019-03-09 00:00 | ATORVASTATIN | [facility] | + + + + | 2019-03-09 00:00 | ATORVASTATIN | [facility] | + + + + | 2019-03-09 00:00 | ATORVASTATIN | [facility] | + + + + | 2019-03-09 00:00 | ATORVASTATIN | [facility] | + + + + | 2014-01-23 00:00 | AMOXICILLIN/POTASSIUM CLAV | [facility] | | | | | + + + + | 2014-01-23 00:00 | AMOXICILLIN/POTASSIUM CLAV | [facility] | | | | | + + + + | 2014-01-23 00:00 | AMOXICILLIN/POTASSIUM CLAV | [facility] | | | | | + + + + | 2014-01-23 00:00 | AMOXICILLIN/POTASSIUM CLAV | [facility] | | | | | + + + + | 2020-07-01 00:00 | AMOXICILLIN/POTASSIUM CLAV | [facility] | | | | | + + + + | 2020-07-01 00:00 | AMOXICILLIN/POTASSIUM CLAV | [facility] | | | | | + + + + | 2020-07-01 00:00 | AMOXICILLIN/POTASSIUM CLAV | [facility] | | | | | + + + + | 2020-07-01 00:00 | AMOXICILLIN/POTASSIUM CLAV | [facility] | | | | | + + + + | 2022-01-25 00:00 | DILTIAZEM HCL | [facility] | + + + + | 2022-01-27 00:00 | DILTIAZEM HCL | [facility] | + + + + | 2022-03-04 00:00 | DILTIAZEM HCL | [facility] | + + + + | 2022-06-09 00:00 | DILTIAZEM HCL | [facility] | + + + + | 2022-09-15 00:00 | DILTIAZEM HCL | [facility] | + + + + | 2022-09-15 00:00 | DILTIAZEM HCL | [facility] | + + + + | 2022-01-25 00:00 | DILTIAZEM HCL | [facility] | + + + + | 2022-01-27 00:00 | DILTIAZEM HCL | [facility] | + + + + | 2022-03-04 00:00 | DILTIAZEM HCL | [facility] | + + + + | 2022-06-09 00:00 | DILTIAZEM HCL | [facility] | + + + + | 2022-09-15 00:00 | DILTIAZEM HCL | [facility] | + + + + | 2022-01-25 00:00 | TOLTERODINE TARTRATE | [facility] | + + + + | 2022-01-27 00:00 | TOLTERODINE TARTRATE | [facility] | + + + + | 2022-03-04 00:00 | TOLTERODINE TARTRATE | [facility] | + + + + | 2022-06-09 00:00 | TOLTERODINE TARTRATE | [facility] | + + + + | 2022-09-15 00:00 | TOLTERODINE TARTRATE | [facility] | + + + + | 2022-01-25 00:00 | WARFARIN SODIUM | [facility] | + + + + | 2022-01-27 00:00 | WARFARIN SODIUM | [facility] | + + + + | 2022-03-04 00:00 | WARFARIN SODIUM | [facility] | + + + + | 2022-06-09 00:00 | WARFARIN SODIUM | [facility] | + + + + | 2022-09-15 00:00 | WARFARIN SODIUM | [facility] | + + + + | 2022-01-25 00:00 | HYDROCODONE | [facility] | | | BIT/ACETAMINOPHEN | | + + + + | 2022-01-27 00:00 | HYDROCODONE | [facility] | | | BIT/ACETAMINOPHEN | | + + + + | 2022-03-04 00:00 | HYDROCODONE | [facility] | | | BIT/ACETAMINOPHEN | | + + + + | 2022-06-09 00:00 | HYDROCODONE | [facility] | | | BIT/ACETAMINOPHEN | | + + + + | 2022-09-15 00:00 | HYDROCODONE | [facility] | | | BIT/ACETAMINOPHEN | | + + + + | 2022-01-25 00:00 | OXYBUTYNIN CHLORIDE | [facility] | + + + + | 2022-01-25 00:00 | OXYBUTYNIN CHLORIDE | [facility] | + + + + | 2022-01-25 00:00 | OXYBUTYNIN CHLORIDE | [facility] | + + + + | 2022-01-25 00:00 | OXYBUTYNIN CHLORIDE | [facility] | + + + + | 2022-01-25 00:00 | OXYBUTYNIN CHLORIDE | [facility] | + + + + | 2022-01-27 00:00 | OXYBUTYNIN CHLORIDE | [facility] | + + + + | 2022-03-04 00:00 | OXYBUTYNIN CHLORIDE | [facility] | + + + + | 2022-06-09 00:00 | OXYBUTYNIN CHLORIDE | [facility] | + + + + | 2022-09-15 00:00 | OXYBUTYNIN CHLORIDE | [facility] | + + + + | 2022-01-25 00:00 | LOSARTAN POTASSIUM | [facility] | + + + + | 2022-01-27 00:00 | LOSARTAN POTASSIUM | [facility] | + + + + | 2022-03-04 00:00 | LOSARTAN POTASSIUM | [facility] | + + + + | 2022-06-09 00:00 | LOSARTAN POTASSIUM | [facility] | + + + + | 2022-09-15 00:00 | LOSARTAN POTASSIUM | [facility] | + + + + Problems + + + + | date | description | facility | + + + + | 2014-01-23 00:00 | Left lower lobe pneumonia | [facility] | + + + + | 2014-01-23 00:00 | Left lower lobe pneumonia | [facility] | + + + + | 2014-01-23 00:00 | Left lower lobe pneumonia | [facility] | + + + + | 2014-01-23 00:00 | Left lower lobe pneumonia | [facility] | + + + + | 2020-07-01 00:00 | Avulsion of skin of face | [facility] | + + + + | 2020-07-01 00:00 | Avulsion of skin of face | [facility] | + + + + | 2020-07-01 00:00 | Avulsion of skin of face | [facility] | + + + + | 2020-07-01 00:00 | Avulsion of skin of face | [facility] | + + + + | 2020-07-01 00:00 | Fracture of nasal bone | [facility] | + + + + | 2020-07-01 00:00 | Fracture of nasal bone | [facility] | + + + + | 2020-07-01 00:00 | Fracture of nasal bone | [facility] | + + + + | 2020-07-01 00:00 | Fracture of nasal bone | [facility] | + + + + | 2020-07-01 00:00 | Minor head injury | [facility] | + + + + | 2020-07-01 00:00 | Minor head injury | [facility] | + + + + | 2020-07-01 00:00 | Minor head injury | [facility] | + + + + | 2020-07-01 00:00 | Minor head injury | [facility] | + + + + | 2021-03-14 00:00 | Transient ischemic attack | [facility] | + + + + | 2021-03-14 00:00 | Transient ischemic attack | [facility] | + + + + | 2021-03-14 00:00 | Transient ischemic attack | [facility] | + + + + | 2021-03-14 00:00 | Transient ischemic attack | [facility] | + + + + | 2021-11-12 08:00 | 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 | | + + + + | 2021-11-12 08:00 | ENCOUNTER FOR THERAPEUTIC | [facility] | | | DRUG LEVEL MONITORING | | + + + + | 2021-11-12 08:00 | ANIMAL THERAPIST (CURRENT) USE OF | [facility] | | | ANTICOAGULANTS | | + + + + | 2021-11-12 08:00 | OTHER SPECIFIED | [facility] | | | POSTPROCEDURAL STATES | | + + + + | 2021-12-03 08:00 | 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 | | + + + + | 2021-12-03 08:00 | ENCOUNTER FOR THERAPEUTIC | [facility] | | | DRUG LEVEL MONITORING | | + + + + | 2021-12-03 08:00 | ANIMAL THERAPIST (CURRENT) USE OF | [facility] | | | ANTICOAGULANTS | | + + + + | 2021-12-03 08:00 | 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 | | + + + + | 2021-12-17 08:00 | 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 | | + + + + | 2021-12-17 08:00 | ENCOUNTER FOR THERAPEUTIC | [facility] | | | DRUG LEVEL MONITORING | | + + + + | 2021-12-17 08:00 | ANIMAL THERAPIST (CURRENT) USE OF | [facility] | | | ANTICOAGULANTS | | + + + + | 2021-12-17 08:00 | 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 | | + + + + | 2022-01-25 00:00 | Sepsis | [facility] | + + + + | 2022-01-25 00:00 | Sepsis | [facility] | + + + + | 2022-01-25 00:00 | Sepsis | [facility] | + + + + | 2022-01-25 00:00 | Sepsis | [facility] | + + + + | 2022-01-25 00:00 | Urinary tract infection | [facility] | + + + + | 2022-01-25 00:00 | Urinary tract infection | [facility] | + + + + | 2022-01-25 00:00 | Urinary tract infection | [facility] | + + + + | 2022-01-25 00:00 | Urinary tract infection | [facility] | + + + + | 2022-01-25 00:42 | Essential (primary) | [facility] | | | hypertension | | + + + + | 2022-01-25 00:42 | UNSPECIFIED HYDRONEPHROSIS | [facility] | | | | | + + + + | 2022-01-25 00:42 | URINARY TRACT INFECTION, | [facility] | | | SITE NOT SPECIFIED | | + + + + | 2022-01-25 00:42 | HEMATURIA, UNSPECIFIED | [facility] | + + + + | 2022-01-25 00:42 | OTHER ANIMAL THERAPIST (CURRENT) | [facility] | | | DRUG THERAPY | | + + + + | 2022-01-25 00:42 | PRSNL HX OF TIA (TIA), 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 | | + + + + | 2022-01-25 18:42 | SEPSIS, UNSPECIFIED | [facility] | | | ORGANISM | | + + + + | 2022-01-25 18:42 | HYPOKALEMIA | [facility] | + + + + | 2022-01-25 18:42 | DEM [facility] DIS [facility]ASSD | [facility] | | | ELSWHR,TASHIP SEV,W/O | | | | BEH/PSYC | | + + + + | 2022-01-25 18:42 | Parkinson's disease | [facility] | + + + + | 2022-01-25 18:42 | OBSTRUCTIVE SLEEP APNEA | [facility] | | | (ADULT) (PEDIATRIC) | | + + + + | 2022-01-25 18:42 | METABOLIC ENCEPHALOPATHY | [facility] | + + + + | 2022-01-25 18:42 | Essential (primary) | [facility] | | | hypertension | | + + + + | 2022-01-25 18:42 | CARDIOMYOPATHY, | [facility] | | | UNSPECIFIED | | + + + + | 2022-01-25 18:42 | URINARY TRACT INFECTION, | [facility] | | | SITE NOT SPECIFIED | | + + + + | 2022-01-25 18:42 | ASSISTED (CURRENT) USE OF | [facility] | | | ASPIRIN | | + + + + | 2022-01-25 18:42 | OTHER ANIMAL THERAPIST (CURRENT) | [facility] | | | DRUG THERAPY | | + + + + | 2022-01-25 18:42 | PERSONAL HISTORY OF | [facility] | | | 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 | | + + + + | 2022-01-25 18:42 | PRSNL HX OF TIA (TIA), 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 | | + + + + | 2022-01-25 18:42 | ACQUIRED ABSENCE OF OTHER | [facility] | | | GENITAL ORGAN(S) | | + + + + | 2022-01-25 18:42 | PERSONAL HISTORY OF | [facility] | | | IRRADIATION | | + + + + | 2022-01-25 18:42 | 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 | | + + + + | 2022-03-04 00:00 | Pneumonia | [facility] | + + + + | 2022-03-04 00:00 | Pneumonia | [facility] | + + + + | 2022-03-04 00:00 | Pneumonia | [facility] | + + + + | 2022-03-04 09:23 | PNEUMONIA, UNSPECIFIED | [facility] | | | ORGANISM | | + + + + | 2022-03-04 09:23 | CHEST PAIN, UNSPECIFIED | [facility] | + + + + | 2022-04-30 00:00 | Parkinson's disease | [facility] | + + + + | 2022-05-07 00:00 | Parkinson's disease | [facility] | + + + + | 2022-05-08 09:00 | Parkinson's disease | [facility] | + + + + | 2022-05-29 00:01 | Parkinson's disease | [facility] | + + + + | 2022-05-31 00:00 | Parkinson's disease | [facility] | + + + + | 2022-07-03 07:19 | Parkinson's disease | [facility] | + + + + | 2022-07-03 07:19 | UNSTEADINESS ON FEET | [facility] | + + + + | 2022-07-03 07:19 | OTHER ABNORMALITIES OF | [facility] | | | GAIT AND MOBILITY | | + + + + | 2022-07-24 15:37 | HYPERTENSIVE HEART DISEASE | [facility] | | | WITHOUT HEART FAILURE | | + + + + | 2022-07-24 15:37 | 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 | | + + + + | 2022-07-24 15:37 | 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 | | + + + + | 2022-07-24 15:37 | OTHER SPECIFIED | [facility] | | | POSTPROCEDURAL STATES | | + + + + | 2022-07-31 07:24 | Parkinson's disease | [facility] | + + + + | 2022-07-31 07:24 | UNSTEADINESS ON FEET | [facility] | + + + + | 2022-07-31 07:24 | OTHER ABNORMALITIES OF | [facility] | | | GAIT AND MOBILITY | | + + + + | 2022-08-01 08:51 | OTHER SPECIFIED INJURIES | [facility] | | | OF RIGHT ELBOW, INITIAL | | | | ENCOUNTER | | + + + + | 2022-08-25 15:41 | Parkinson's disease | [facility] | + + + + | 2022-08-25 15:41 | 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 Results/Labs +--------+--------+ +---------+--------+---------+ | test | date | facility | value | unit | notes | +--------+--------+ +---------+--------+---------+ + + | Result panel 1 | + + + + + +-------+---------+ + | | 2022-01-25 | [facility] | 113 | mg/dL | (missing) | | (unavailable | 01:29 | [facility] | | | | + + + +-------+---------+ + + + | Result panel 2 | + + + + + +------+---------+ + | | 2022-01-25 | [facility] | 18 | mg/dL | (missing) | | (unavailable | 01:29 | [facility] | | | | + + + +------+---------+ + + + | Result panel 3 | + + + + + +--------+---------+ + | | 2022-01-25 | [facility] | 0.97 | mg/dL | (missing) | | (unavailable | 01:29 | [facility] | | | | + + + +--------+---------+ + + + | Result panel 4 | + + + + + +------+ + + | | 2022-01-25 | [facility] | 83 | (missing) | (missing) | | (unavailable | 01:29 | [facility] | | | | + + + +------+ + + + + | Result panel 5 | + + + + + +---------+ + + | | 2022-01-25 | [facility] | 18.55 | (missing) | (missing) | | (unavailable | 01:29 | [facility] | | | | + + + +---------+ + + + + | Result panel 6 | + + + + + +-------+ + + | | 2022-01-25 | [facility] | 137 | (missing) | (missing) | | (unavailable | 01:29 | [facility] | | | | + + + +-------+ + + + + | Result panel 7 | + + + + + +-------+ + + | | 2022-01-25 | [facility] | 3.4 | (missing) | (missing) | | (unavailable | 01:29 | [facility] | | | | + + + +-------+ + + + + | Result panel 8 | + + + + + +-------+ + + | | 2022-01-25 | [facility] | 103 | (missing) | (missing) | | (unavailable | 01:29 | [facility] | | | | + + + +-------+ + + + + | Result panel 9 | + + + + + +------+ + + | | 2022-01-25 | [facility] | 26 | (missing) | (missing) | | (unavailable | 01:29 | [facility] | | | | + + + +------+ + + + + | Result panel 10 | + + + + + +--------+ + + | | 2022-01-25 | [facility] | 11.4 | (missing) | (missing) | | (unavailable | 01:29 | [facility] | | | | + + + +--------+ + + + + | Result panel 11 | + + + + + +-------+---------+ + | | 2022-01-25 | [facility] | 9.0 | mg/dL | (missing) | | (unavailable | 01:29 | [facility] | | | | + + + +-------+---------+ + + + | Result panel 12 | + + + + + +-------+ + + | | 2022-01-25 | [facility] | 7.2 | (missing) | (missing) | | (unavailable | 01:29 | [facility] | | | | + + + +-------+ + + + + | Result panel 13 | + + + + + +-------+ + + | | 2022-01-25 | [facility] | 3.8 | (missing) | (missing) | | (unavailable | 01:29 | [facility] | | | | + + + +-------+ + + + + | Result panel 14 | + + + + + +-------+ + + | | 2022-01-25 | [facility] | 3.4 | (missing) | (missing) | | (unavailable | 01:29 | [facility] | | | | + + + +-------+ + + + + | Result panel 15 | + + + + + +--------+ + + | | 2022-01-25 | [facility] | 1.12 | (missing) | (missing) | | (unavailable | 01:29 | [facility] | | | | + + + +--------+ + + + + | Result panel 16 | + + + + + +-------+ + + | | 2022-01-25 | [facility] | 0.7 | (missing) | (missing) | | (unavailable | 01:29 | [facility] | | | + + + +-------+ + + + + | Result panel 17 | + + + + + +------+ + + | | 2022-01-25 | [facility] | 41 | (missing) | (missing) | | (unavailable | 01:29 | [facility] | | | | + + + +------+ + + + + | Result panel 18 | + + + + + +------+ + + | | 2022-01-25 | [facility] | 35 | (missing) | (missing) | | (unavailable | 01:29 | [facility] | | | | + + + +------+ + + + + | Result panel 19 | + + + + + +-------+ + + | | 2022-01-25 | [facility] | 100 | (missing) | (missing) | | (unavailable | 01:29 | [facility] | | | + + + +-------+ + + + + | Result panel 20 | + + + + + +--------+ + + | | 2022-01-25 | [facility] | 13.4 | (missing) | (missing) | | (unavailable | 01:29 | [facility] | | | | + + + +--------+ + + + + | Result panel 21 | + + + + + +--------+ + + | | 2022-01-25 | [facility] | 4.18 | (missing) | (missing) | | (unavailable | 01:29 | [facility] | | | | + + + +--------+ + + + + | Result panel 22 | + + + + + +--------+ + + | | 2022-01-25 | [facility] | 12.3 | (missing) | (missing) | | (unavailable | 01:29 | [facility] | | | | + + + +--------+ + + + + | Result panel 23 | + + + + + +--------+ + + | | 2022-01-25 | [facility] | 37.4 | (missing) | (missing) | | (unavailable | 01:29 | [facility] | | | | + + + +--------+ + + + + | Result panel 24 | + + + + + +--------+ + + | | 2022-01-25 | [facility] | 89.6 | (missing) | (missing) | | (unavailable | 01:29 | [facility] | | | | + + + +--------+ + + + + | Result panel 25 | + + + + + +--------+ + + | | 2022-01-25 | [facility] | 29.5 | (missing) | (missing) | | (unavailable | 01:29 | [facility] | | | | + + + +--------+ + + + + | Result panel 26 | + + + + + +--------+ + + | | 2022-01-25 | [facility] | 32.9 | (missing) | (missing) | | (unavailable | 01:29 | [facility] | | | | + + + +--------+ + + + + | Result panel 27 | + + + + + +--------+ + + | | 2022-01-25 | [facility] | 15.8 | (missing) | (missing) | | (unavailable | 01:29 | [facility] | | | | + + + +--------+ + + + + | Result panel 28 | + + + + + +-------+ + + | | 2022-01-25 | [facility] | 184 | (missing) | (missing) | | (unavailable | 01:29 | [facility] | | | | + + + +-------+ + + + + | Result panel 29 | + + + + + +--------+ + + | | 2022-01-25 | [facility] | 88.6 | (missing) | (missing) | | (unavailable | 01:29 | [facility] | | | | + + + +--------+ + + + + | Result panel 30 | + + + + + +-------+ + + | | 2022-01-25 | [facility] | 2.4 | (missing) | (missing) | | (unavailable | 01:29 | [facility] | | | | + + + +-------+ + + + + | Result panel 31 | + + + + + +-------+ + + | | 2022-01-25 | [facility] | 6.8 | (missing) | (missing) | | (unavailable | 01:29 | [facility] | | | | + + + +-------+ + + + + | Result panel 32 | + + + + + +-------+ + + | | 2022-01-25 | [facility] | 1.8 | (missing) | (missing) | | (unavailable | 01:29 | [facility] | | | | + + + +-------+ + + + + | Result panel 33 | + + + + + +-------+ + + | | 2022-01-25 | [facility] | 0.4 | (missing) | (missing) | | (unavailable | 01:29 | [facility] | | | | + + + +-------+ + + + + | Result panel 34 | + + + + + + + + + | | 2022-01-25 | [facility] | CLEAN CATCH | (missing) | (missing) | | (unavailable | 02:10 | [facility] | | | | + + + + + + + + + | Result panel 35 | + + + + + + + + + | | 2022-01-25 | [facility] | YELLOW | (missing) | (missing) | | (unavailable | 02:10 | [facility] | | | | + + + + + + + + + | Result panel 36 | + + + + + +---------+ + + | | 2022-01-25 | [facility] | CLEAR | (missing) | (missing) | | (unavailable | 02:10 | [facility] | | | | + + + +---------+ + + + + | Result panel 37 | + + + + + + + + + | | 2022-01-25 | [facility] | NEGATIVE | (missing) | (missing) | | (unavailable | 02:10 | [facility] | | | | + + + + + + + + + | Result panel 38 | + + + + + + + + + | | 2022-01-25 | [facility] | NEGATIVE | (missing) | (missing) | | (unavailable | 02:10 | [facility] | | | | + + + + + + + + + | Result panel 39 | + + + + + + + + + | | 2022-01-25 | [facility] | NEGATIVE | (missing) | (missing) | | (unavailable | 02:10 | [facility] | | | | + + + + + + + + + | Result panel 40 | + + + + + +---------+ + + | | 2022-01-25 | [facility] | 1.010 | (missing) | (missing) | | (unavailable | 02:10 | [facility] | | | | + + + +---------+ + + + + | Result panel 41 | + + + + + +---------+ + + | | 2022-01-25 | [facility] | LARGE | (missing) | (missing) | | (unavailable | 02:10 | [facility] | | | | + + + +---------+ + + + + | Result panel 42 | + + + + + +-------+ + + | | 2022-01-25 | [facility] | 5.5 | (missing) | (missing) | | (unavailable | 02:10 | [facility] | | | | + + + +-------+ + + + + | Result panel 43 | + + + + + + + + + | | 2022-01-25 | [facility] | NEGATIVE | (missing) | (missing) | | (unavailable | 02:10 | [facility] | | | | + + + + + + + + + | Result panel 44 | + + + + + + + + + | | 2022-01-25 | [facility] | NORMAL | (missing) | (missing) | | (unavailable | 02:10 | [facility] | | | | + + + + + + + + + | Result panel 45 | + + + + + + + + + | | 2022-01-25 | [facility] | NEGATIVE | (missing) | (missing) | | (unavailable | 02:10 | [facility] | | | | + + + + + + + + + | Result panel 46 | + + + + + +---------+ + + | | 2022-01-25 | [facility] | SMALL | (missing) | (missing) | | (unavailable | 02:10 | [facility] | | | | + + + +---------+ + + + + | Result panel 47 | + + + + + +---------+ + + | | 2022-01-25 | [facility] | 21-40 | (missing) | (missing) | | (unavailable | 02:10 | [facility] | | | | + + + +---------+ + + + + | Result panel 48 | + + + + + +-------+ + + | | 2022-01-25 | [facility] | 4-6 | (missing) | (missing) | | (unavailable | 02:10 | [facility] | | | | + + + +-------+ + + + + | Result panel 49 | + + + + + +-----+ + + | | 2022-01-25 | [facility] | 0 | (missing) | (missing) | | (unavailable | 02:10 | [facility] | | | | + + + +-----+ + + + + | Result panel 50 | + + + + + +------+ + + | | 2022-01-25 | [facility] | No | (missing) | (missing) | | (unavailable | 02:10 | [facility] | | | | + + + +------+ + + + + | Result panel 51 | + + + + + + + + + | | 2022-01-25 | [facility] | PRESENT | (missing) | (missing) | | (unavailable | 17:00 | [facility] | | | | + + + + + + + + + | Result panel 52 | + + + + + + + + + | | 2022-01-25 | [facility] | SEE COMENTS | (missing) | (missing) | | (unavailable | 17:00 | [facility] | | | | + + + + + + + + + | Result panel 53 | + + + + + +--------+ + + | | 2022-01-25 | [facility] | 13.8 | (missing) | (missing) | | (unavailable | 17:00 | [facility] | | | | + + + +--------+ + + + + | Result panel 54 | + + + + + +--------+ + + | | 2022-01-25 | [facility] | 1.10 | (missing) | (missing) | | (unavailable | 17:00 | [facility] | | | | + + + +--------+ + + + + | Result panel 55 | + + + + + +--------+ + + | | 2022-01-25 | [facility] | 27.4 | (missing) | (missing) | | (unavailable | 17:00 | [facility] | | | | + + + +--------+ + + + + | Result panel 56 | + + + + + + + + + | | 2022-01-25 | [facility] | YELLOW | (missing) | (missing) | | (unavailable | 17:00 | [facility] | | | | + + + + + + + + + | Result panel 57 | + + + + + +---------+ + + | | 2022-01-25 | [facility] | CLEAR | (missing) | (missing) | | (unavailable | 17:00 | [facility] | | | | + + + +---------+ + + + + | Result panel 58 | + + + + + + + + + | | 2022-01-25 | [facility] | NEGATIVE | (missing) | (missing) | | (unavailable | 17:00 | [facility] | | | | + + + + + + + + + | Result panel 59 | + + + + + + + + + | | 2022-01-25 | [facility] | NEGATIVE | (missing) | (missing) | | (unavailable | 17:00 | [facility] | | | | + + + + + + + + + | Result panel 60 | + + + + + + + + + | | 2022-01-25 | [facility] | NEGATIVE | (missing) | (missing) | | (unavailable | 17:00 | [facility] | | | | + + + + + + + + + | Result panel 61 | + + + + + +---------+ + + | | 2022-01-25 | [facility] | 1.020 | (missing) | (missing) | | (unavailable | 17:00 | [facility] | | | | + + + +---------+ + + + + | Result panel 62 | + + + + + +---------+ + + | | 2022-01-25 | [facility] | LARGE | (missing) | (missing) | | (unavailable | 17:00 | [facility] | | | | + + + +---------+ + + + + | Result panel 63 | + + + + + +-------+ + + | | 2022-01-25 | [facility] | 6.0 | (missing) | (missing) | | (unavailable | 17:00 | [facility] | | | | + + + +-------+ + + + + | Result panel 64 | + + + + + +------+ + + | | 2022-01-25 | [facility] | 30 | (missing) | (missing) | | (unavailable | 17:00 | [facility] | | | | + + + +------+ + + + + | Result panel 65 | + + + + + +-------+ + + | | 2022-01-25 | [facility] | 1.0 | (missing) | (missing) | | (unavailable | 17:00 | [facility] | | | | + + + +-------+ + + + + | Result panel 66 | + + + + + + + + + | | 2022-01-25 | [facility] | NEGATIVE | (missing) | (missing) | | (unavailable | 17:00 | [facility] | | | | + + + + + + + + + | Result panel 67 | + + + + + +---------+ + + | | 2022-01-25 | [facility] | SMALL | (missing) | (missing) | | (unavailable | 17:00 | [facility] | | | | + + + +---------+ + + + + | Result panel 68 | + + + + + +-------+ + + | | 2022-01-25 | [facility] | 4-6 | (missing) | (missing) | | (unavailable | 17:00 | [facility] | | | | + + + +-------+ + + + + | Result panel 69 | + + + + + +---------+ + + | | 2022-01-25 | [facility] | 12- | (missing) | (missing) | | (unavailable | 17:00 | [facility] | | | | + + + +---------+ + + + + | Result panel 70 | + + + + + + + + + | | 2022-01-25 | [facility] | SQUAMOUS 1+ | (missing) | (missing) | | (unavailable | 17:00 | [facility] | | | | + + + + + + + + + | Result panel 71 | + + + + + + + + + | | 2022-01-25 | [facility] | NONE SEEN | (missing) | (missing) | | (unavailable | 17:00 | [facility] | | | | + + + + + + + + + | Result panel 72 | + + + + + +------+ + + | | 2022-01-25 | [facility] | 2+ | (missing) | (missing) | | (unavailable | 17:00 | [facility] | | | | + + + +------+ + + + + | Result panel 73 | + + + + + +-------+ + + | | 2022-01-25 | [facility] | Yes | (missing) | (missing) | | (unavailable | 17:00 | [facility] | | | | + + + +-------+ + + + + | Result panel 74 | + + + + + + + + + | | 2022-01-25 | [facility] | CLEAN CATCH | (missing) | (missing) | | (unavailable | 17:00 | [facility] | | | | + + + + + + + + + | Result panel 75 | + + + + + +-------+ + + | | 2022-01-25 | [facility] | 7.1 | (missing) | (missing) | | (unavailable | 17:00 | [facility] | | | | + + + +-------+ + + + + | Result panel 76 | + + + + + +-------+ + + | | 2022-01-25 | [facility] | 3.7 | (missing) | (missing) | | (unavailable | 17:00 | [facility] | | | | + + + +-------+ + + + + | Result panel 77 | + + + + + +-------+ + + | | 2022-01-25 | [facility] | 3.4 | (missing) | (missing) | | (unavailable | 17:00 | [facility] | | | | + + + +-------+ + + + + | Result panel 78 | + + + + + +--------+ + + | | 2022-01-25 | [facility] | 1.09 | (missing) | (missing) | | (unavailable | 17:00 | [facility] | | | | + + + +--------+ + + + + | Result panel 79 | + + + + + +-------+ + + | | 2022-01-25 | [facility] | 1.2 | (missing) | (missing) | | (unavailable | 17:00 | [facility] | | | | + + + +-------+ + + + + | Result panel 80 | + + + + + +------+ + + | | 2022-01-25 | [facility] | 48 | (missing) | (missing) | | (unavailable | 17:00 | [facility] | | | | + + + +------+ + + + + | Result panel 81 | + + + + + +------+ + + | | 2022-01-25 | [facility] | 33 | (missing) | (missing) | | (unavailable | 17:00 | [facility] | | | | + + + +------+ + + + + | Result panel 82 | + + + + + +------+ + + | | 2022-01-25 | [facility] | 96 | (missing) | (missing) | | (unavailable | 17:00 | [facility] | | | | + + + +------+ + + + + | Result panel 83 | + + + + + + + + + | | 2022-01-25 | [facility] | NEGATIVE | (missing) | (missing) | | (unavailable | 17:00 | [facility] | | | | + + + + + + + + + | Result panel 84 | + + + + + + + + + | | 2022-01-25 | [facility] | NEGATIVE | (missing) | (missing) | | (unavailable | 17:00 | [facility] | | | | + + + + + + + + + | Result panel 85 | + + + + + + + + + | | 2022-01-25 | [facility] | NEGATIVE | (missing) | (missing) | | (unavailable | 17:00 | [facility] | | | | + + + + + + + + + | Result panel 86 | + + + + + + + + + | | 2022-01-25 | [facility] | NEGATIVE | (missing) | (missing) | | (unavailable | 17:00 | [facility] | | | | + + + + + + + + + | Result panel 87 | + + + + + +-------+ + + | | 2022-01-25 | [facility] | 1.5 | (missing) | (missing) | | (unavailable | 19:58 | [facility] | | | | + + + +-------+ + + + + | Result panel 88 | + + + + + +------+ + + | | 2022-01-26 | [facility] | 88 | (missing) | (missing) | | (unavailable | 05:15 | [facility] | | | | + + + +------+ + + + + | Result panel 89 | + + + + + +-----+ + + | | 2022-01-26 | [facility] | 5 | (missing) | (missing) | | (unavailable | 05:15 | [facility] | | | | + + + +-----+ + + + + | Result panel 90 | + + + + + +-----+ + + | | 2022-01-26 | [facility] | 4 | (missing) | (missing) | | (unavailable | 05:15 | [facility] | | | | + + + +-----+ + + + + | Result panel 91 | + + + + + +-----+ + + | | 2022-01-26 | [facility] | 3 | (missing) | (missing) | | (unavailable | 05:15 | [facility] | | | | + + + +-----+ + + + + | Result panel 92 | + + + + + +--------+ + + | | 2022-01-27 | [facility] | 10.1 | (missing) | (missing) | | (unavailable | 05:08 | [facility] | | | | + + + +--------+ + + + + | Result panel 93 | + + + + + +--------+ + + | | 2022-01-27 | [facility] | 3.45 | (missing) | (missing) | | (unavailable | 05:08 | [facility] | | | | + + + +--------+ + + + + | Result panel 94 | + + + + + +--------+ + + | | 2022-01-27 | [facility] | 10.1 | (missing) | (missing) | | (unavailable | 05:08 | [facility] | | | | + + + +--------+ + + + + | Result panel 95 | + + + + + +--------+ + + | | 2022-01-27 | [facility] | 31.2 | (missing) | (missing) | | (unavailable | 05:08 | [facility] | | | | + + + +--------+ + + + + | Result panel 96 | + + + + + +--------+ + + | | 2022-01-27 | [facility] | 90.4 | (missing) | (missing) | | (unavailable | 05:08 | [facility] | | | | + + + +--------+ + + + + | Result panel 97 | + + + + + +--------+ + + | | 2022-01-27 | [facility] | 29.3 | (missing) | (missing) | | (unavailable | 05:08 | [facility] | | | | + + + +--------+ + + + + | Result panel 98 | + + + + + +--------+ + + | | 2022-01-27 | [facility] | 32.5 | (missing) | (missing) | | (unavailable | 05:08 | [facility] | | | | + + + +--------+ + + + + | Result panel 99 | + + + + + +--------+ + + | | 2022-01-27 | [facility] | 16.2 | (missing) | (missing) | | (unavailable | 05:08 | [facility] | | | | + + + +--------+ + + + + | Result panel 100 | + + + + + +-------+ + + | | 2022-01-27 | [facility] | 139 | (missing) | (missing) | | (unavailable | 05:08 | [facility] | | | | + + + +-------+ + + + + | Result panel 101 | + + + + + +--------+ + + | | 2022-01-27 | [facility] | 89.5 | (missing) | (missing) | | (unavailable | 05:08 | [facility] | | | | + + + +--------+ + + + + | Result panel 102 | + + + + + +-------+ + + | | 2022-01-27 | [facility] | 2.5 | (missing) | (missing) | | (unavailable | 05:08 | [facility] | | | | + + + +-------+ + + + + | Result panel 103 | + + + + + +-------+ + + | | 2022-01-27 | [facility] | 6.6 | (missing) | (missing) | | (unavailable | 05:08 | [facility] | | | | + + + +-------+ + + + + | Result panel 104 | + + + + + +-------+ + + | | 2022-01-27 | [facility] | 0.9 | (missing) | (missing) | | (unavailable | 05:08 | [facility] | | | | + + + +-------+ + + + + | Result panel 105 | + + + + + +-------+ + + | | 2022-01-27 | [facility] | 0.5 | (missing) | (missing) | | (unavailable | 05:08 | [facility] | | | | + + + +-------+ + + + + | Result panel 106 | + + + + + +-------+---------+ + | | 2022-01-27 | [facility] | 116 | mg/dL | (missing) | | (unavailable | 05:08 | [facility] | | | | + + + +-------+---------+ + + + | Result panel 107 | + + + + + +------+---------+ + | | 2022-01-27 | [facility] | 19 | mg/dL | (missing) | | (unavailable | 05:08 | [facility] | | | | + + + +------+---------+ + + + | Result panel 108 | + + + + + +--------+---------+ + | | 2022-01-27 | [facility] | 0.98 | mg/dL | (missing) | | (unavailable | 05:08 | [facility] | | | | + + + +--------+---------+ + + + | Result panel 109 | + + + + + +------+ + + | | 2022-01-27 | [facility] | 82 | (missing) | (missing) | | (unavailable | 05:08 | [facility] | | | | + + + +------+ + + + + | Result panel 110 | + + + + + +---------+ + + | | 2022-01-27 | [facility] | 19.38 | (missing) | (missing) | | (unavailable | 05:08 | [facility] | | | | + + + +---------+ + + + + | Result panel 111 | + + + + + +-------+ + + | | 2022-01-27 | [facility] | 140 | (missing) | (missing) | | (unavailable | 05:08 | [facility] | | | | + + + +-------+ + + + + | Result panel 112 | + + + + + +-------+ + + | | 2022-01-27 | [facility] | 3.7 | (missing) | (missing) | | (unavailable | 05:08 | [facility] | | | | + + + +-------+ + + + + | Result panel 113 | + + + + + +-------+ + + | | 2022-01-27 | [facility] | 106 | (missing) | (missing) | | (unavailable | 05:08 | [facility] | | | | + + + +-------+ + + + + | Result panel 114 | + + + + + +------+ + + | | 2022-01-27 | [facility] | 28 | (missing) | (missing) | | (unavailable | 05:08 | [facility] | | | | + + + +------+ + + + + | Result panel 115 | + + + + + +-------+ + + | | 2022-01-27 | [facility] | 9.7 | (missing) | (missing) | | (unavailable | 05:08 | [facility] | | | | + + + +-------+ + + + + | Result panel 116 | + + + + + +-------+---------+ + | | 2022-01-27 | [facility] | 8.5 | mg/dL | (missing) | | (unavailable | 05:08 | [facility] | | | | + + + +-------+---------+ + + + | Result panel 117 | + + + + + +--------+ + + | | 2022-03-04 | [facility] | 11.4 | (missing) | (missing) | | (unavailable | 09:43:08 | [facility] | | | | + + + +--------+ + + + + | Result panel 118 | + + + + + +--------+ + + | | 2022-03-04 | [facility] | 3.98 | (missing) | (missing) | | (unavailable | 09:43:08 | [facility] | | | | + + + +--------+ + + + + | Result panel 119 | + + + + + +--------+ + + | | 2022-03-04 | [facility] | 11.5 | (missing) | (missing) | | (unavailable | 09:43:08 | [facility] | | | | + + + +--------+ + + + + | Result panel 120 | + + + + + +--------+ + + | | 2022-03-04 | [facility] | 35.5 | (missing) | (missing) | | (unavailable | 09:43:08 | [facility] | | | | + + + +--------+ + + + + | Result panel 121 | + + + + + +--------+ + + | | 2022-03-04 | [facility] | 89.4 | (missing) | (missing) | | (unavailable | 09:43:08 | [facility] | | | | + + + +--------+ + + + + | Result panel 122 | + + + + + +--------+ + + | | 2022-03-04 | [facility] | 29.0 | (missing) | (missing) | | (unavailable | 09:43:08 | [facility] | | | | + + + +--------+ + + + + | Result panel 123 | + + + + + +--------+ + + | | 2022-03-04 | [facility] | 32.4 | (missing) | (missing) | | (unavailable | 09:43:08 | [facility] | | | | + + + +--------+ + + + + | Result panel 124 | + + + + + +--------+ + + | | 2022-03-04 | [facility] | 16.4 | (missing) | (missing) | | (unavailable | 09:43:08 | [facility] | | | | + + + +--------+ + + + + | Result panel 125 | + + + + + +-------+ + + | | 2022-03-04 | [facility] | 173 | (missing) | (missing) | | (unavailable | 09:43:08 | [facility] | | | | + + + +-------+ + + + + | Result panel 126 | + + + + + +--------+ + + | | 2022-03-04 | [facility] | 84.7 | (missing) | (missing) | | (unavailable | 09:43:08 | [facility] | | | | + + + +--------+ + + + + | Result panel 127 | + + + + + +-------+ + + | | 2022-03-04 | [facility] | 3.8 | (missing) | (missing) | | (unavailable | 09:43:08 | [facility] | | | | + + + +-------+ + + + + | Result panel 128 | + + + + + +-------+ + + | | 2022-03-04 | [facility] | 9.1 | (missing) | (missing) | | (unavailable | 09:43:08 | [facility] | | | | + + + +-------+ + + + + | Result panel 129 | + + + + + +-------+ + + | | 2022-03-04 | [facility] | 1.1 | (missing) | (missing) | | (unavailable | 09:43:08 | [facility] | | | | + + + +-------+ + + + + | Result panel 130 | + + + + + +-------+ + + | | 2022-03-04 | [facility] | 1.3 | (missing) | (missing) | | (unavailable | 09:43:08 | [facility] | | | | + + + +-------+ + + + + | Result panel 131 | + + + + + +------+---------+ + | | 2022-03-04 | [facility] | 96 | mg/dL | (missing) | | (unavailable | 09:43:08 | [facility] | | | | + + + +------+---------+ + + + | Result panel 132 | + + + + + +------+---------+ + | | 2022-03-04 | [facility] | 18 | mg/dL | (missing) | | (unavailable | 09:43:08 | [facility] | | | | + + + +------+---------+ + + + | Result panel 133 | + + + + + +--------+---------+ + | | 2022-03-04 | [facility] | 0.98 | mg/dL | (missing) | | (unavailable | 09:43:08 | [facility] | | | | + + + +--------+---------+ + + + | Result panel 134 | + + + + + +------+ + + | | 2022-03-04 | [facility] | 82 | (missing) | (missing) | | (unavailable | 09:43:08 | [facility] | | | | + + + +------+ + + + + | Result panel 135 | + + + + + +---------+ + + | | 2022-03-04 | [facility] | 18.36 | (missing) | (missing) | | (unavailable | 09:43:08 | [facility] | | | | + + + +---------+ + + + + | Result panel 136 | + + + + + +-------+ + + | | 2022-03-04 | [facility] [facility] | 138 | (missing) | (missing) | | (unavailable | 09:43:08 | [facility] | | | | + + + +-------+ + + + + | Result panel 137 | + + + + + +-------+ + + | | 2022-03-04 | [facility] | 3.5 | (missing) | (missing) | | (unavailable | 09:43:08 | [facility] | | | | + + + +-------+ + + + + | Result panel 138 | + + + + + +-------+ + + | | 2022-03-04 | [facility] | 102 | (missing) | (missing) | | (unavailable | 09:43:08 | [facility] | | | | + + + +-------+ + + + + | Result panel 139 | + + + + + +------+ + + | | 2022-03-04 | [facility] | 29 | (missing) | (missing) | | (unavailable | 09:43:08 | [facility] | | | | + + + +------+ + + + + | Result panel 140 | + + + + + +--------+ + + | | 2022-03-04 | [facility] | 10.5 | (missing) | (missing) | | (unavailable | 09:43:08 | [facility] | | | | + + + +--------+ + + + + | Result panel 141 | + + + + + +-------+---------+ + | | 2022-03-04 | [facility] | 8.6 | mg/dL | (missing) | | (unavailable | 09:43:08 | [facility] | | | | + + + +-------+---------+ + + + | Result panel 142 | + + + + + +-------+---------+ + | | 2022-03-04 | [facility] | 2.0 | mg/dL | (missing) | | (unavailable | 09:43:08 | [facility] | | | | + + + +-------+---------+ + + + | Result panel 143 | + + + + + +-------+ + + | | 2022-03-04 | [facility] | 7.2 | (missing) | (missing) | | (unavailable | 09:43:08 | [facility] | | | | + + + +-------+ + + + + | Result panel 144 | + + + + + +-------+ + + | | 2022-03-04 | [facility] | 3.5 | (missing) | (missing) | | (unavailable | 09:43:08 | [facility] | | | | + + + +-------+ + + + + | Result panel 145 | + + + + + +-------+ + + | | 2022-03-04 | [facility] | 3.7 | (missing) | (missing) | | (unavailable | 09:43:08 | [facility] | | | | + + + +-------+ + + + + | Result panel 146 | + + + + + +--------+ + + | | 2022-03-04 | [facility] | 0.95 | (missing) | (missing) | | (unavailable | 09:43:08 | [facility] | | | | + + + +--------+ + + + + | Result panel 147 | + + + + + +-------+ + + | | 2022-03-04 | [facility] | 1.0 | (missing) | (missing) | | (unavailable | 09:43:08 | [facility] | | | | + + + +-------+ + + + + | Result panel 148 | + + + + + +------+ + + | | 2022-03-04 | [facility] | 42 | (missing) | (missing) | | (unavailable | 09:43:08 | [facility] | | | | + + + +------+ + + + + | Result panel 149 | + + + + + +------+ + + | | 2022-03-04 | [facility] | 26 | (missing) | (missing) | | (unavailable | 09:43:08 | [facility] | | | | + + + +------+ + + + + | Result panel 150 | + + + + + +------+ + + | | 2022-03-04 | [facility] | 86 | (missing) | (missing) | | (unavailable | 09:43:08 | [facility] | | | | + + + +------+ + + + + | Result panel 151 | + + + + + +--------+ + + | | 2022-03-04 | [facility] | 45.2 | (missing) | (missing) | | (unavailable | 09:43:08 | [facility] | | | | + + + +--------+ + + + + | Result panel 152 | + + + + + +--------+ + + | | 2022-09-15 | [facility] | 11.1 | (missing) | (missing) | | (unavailable | 14:02:07 | [facility] | | | | + + + +--------+ + + + + | Result panel 153 | + + + + + +--------+ + + | | 2022-09-15 | [facility] | 84.6 | (missing) | (missing) | | (unavailable | 14:02:07 | [facility] | | | | + + + +--------+ + + + + | Result panel 154 | + + + + + +-------+ + + | | 2022-09-15 | [facility] | 4.6 | (missing) | (missing) | | (unavailable | 14:02:07 | [facility] | | | | + + + +-------+ + + + + | Result panel 155 | + + + + + +-------+ + + | | 2022-09-15 | [facility] | 8.2 | (missing) | (missing) | | (unavailable | 14:02:07 | [facility] | | | | + + + +-------+ + + + + | Result panel 156 | + + + + + +-------+ + + | | 2022-09-15 | [facility] | 1.5 | (missing) | (missing) | | (unavailable | 14: | [facility] | | | | + + + +-------+ + + + + | Result panel 157 | + + + + + +-------+ + + | | 2022-09-15 | [facility] | 1.1 | (missing) | (missing) | | (unavailable | 14::07 | [facility] | | | | + + + +-------+ + + + + | Result panel 158 | + + + + + +-------+---------+ + | | 2022-09-15 | [facility] | 111 | mg/dL | (missing) | | (unavailable | | [facility] | | | | + + + +-------+---------+ + + + | Result panel 159 | + + + + + +------+---------+ + | | 2022-09-15 | [facility] | 17 | mg/dL | (missing) | | (unavailable | 14:02:07 | [facility] | | | | + + + +------+---------+ + + + | Result panel 160 | + + + + + +--------+---------+ + | | 2022-09-15 | [facility] | 1.13 | mg/dL | (missing) | | (unavailable | 14: | [facility] | | | | + + + +--------+---------+ + + + | Result panel 161 | + + + + + +------+ + + | | 2022-09-15 | [facility] | 69 | (missing) | (missing) | | (unavailable | 14:02:07 | [facility] | | | | + + + +------+ + + + + | Result panel 162 | + + + + + +---------+ + + | | 2022-09-15 | [facility] | 15.04 | (missing) | (missing) | | (unavailable | 14:02:07 | [facility] | | | | + + + +---------+ + + + + | Result panel 163 | + + + + + +--------+ + + | | 2022-09-15 | [facility] | 4.18 | (missing) | (missing) | | (unavailable | 14:02:07 | [facility] | | | | + + + +--------+ + + + + | Result panel 164 | + + + + + +-------+ + + | | 2022-09-15 | [facility] | 139 | (missing) | (missing) | | (unavailable | 14:02:07 | [facility] | | | | + + + +-------+ + + + + | Result panel 165 | + + + + + +-------+ + + | | 2022-09-15 | [facility] | 3.9 | (missing) | (missing) | | (unavailable | 14:02:07 | [facility] | | | | + + + +-------+ + + + + | Result panel 166 | + + + + + +-------+ + + | | 2022-09-15 | [facility] | 104 | (missing) | (missing) | | (unavailable | 14:02:07 | [facility] | | | | + + + +-------+ + + + + | Result panel 167 | + + + + + +------+ + + | | 2022-09-15 | [facility] | 25 | (missing) | (missing) | | (unavailable | 14:02:07 | [facility] | | | | + + + +------+ + + + + | Result panel 168 | + + + + + +--------+ + + | | 2022-09-15 | [facility] | 13.9 | (missing) | (missing) | | (unavailable | 14:02:07 | [facility] | | | | + + + +--------+ + + + + | Result panel 169 | + + + + + +-------+---------+ + | | 2022-09-15 | [facility] | 8.3 | mg/dL | (missing) | | (unavailable | 14:02:07 | [facility] | | | | + + + +-------+---------+ + + + | Result panel 170 | + + + + + +-------+ + + | | 2022-09-15 | [facility] | 7.0 | (missing) | (missing) | | (unavailable | 14:02:07 | [facility] | | | | + + + +-------+ + + + + | Result panel 171 | + + + + + +-------+ + + | | 2022-09-15 | [facility] | 3.3 | (missing) | (missing) | | (unavailable | 14:02:07 | [facility] | | | | + + + +-------+ + + + + | Result panel 172 | + + + + + +-------+ + + | | 2022-09-15 | [facility] | 3.7 | (missing) | (missing) | | (unavailable | 14:02:07 | [facility] | | | | + + + +-------+ + + + + | Result panel 173 | + + + + + +--------+ + + | | 2022-09-15 | [facility] | 0.89 | (missing) | (missing) | | (unavailable | 14:02:07 | [facility] | | | | + + + +--------+ + + + + | Result panel 174 | + + + + + +--------+ + + | | 2022-09-15 | [facility] | 12.2 | (missing) | (missing) | | (unavailable | 14:02:07 | [facility] | | | | + + + +--------+ + + + + | Result panel 175 | + + + + + +-------+ + + | | 2022-09-15 | [facility] | 0.7 | (missing) | (missing) | | (unavailable | 14:02:07 | [facility] | | | | + + + +-------+ + + + + | Result panel 176 | + + + + + +------+ + + | | 2022-09-15 | [facility] | 27 | (missing) | (missing) | | (unavailable | 14:02:07 | [facility] | | | | + + + +------+ + + + + | Result panel 177 | + + + + + +------+ + + | | 2022-09-15 | [facility] | 14 | (missing) | (missing) | | (unavailable | 14:02:07 | [facility] | | | | + + + +------+ + + + + | Result panel 178 | + + + + + +-------+ + + | | 2022-09-15 | [facility] | 103 | (missing) | (missing) | | (unavailable | 14:02:07 | [facility] | | | | + + + +-------+ + + + + | Result panel 179 | + + + + + +--------+ + + | | 2022-09-15 | [facility] | 46.7 | (missing) | (missing) | | (unavailable | 14: | [facility] | | | | + + + +--------+ + + + + | Result panel 180 | + + + + + +--------+ + + | | 2022-09-15 | [facility] | 37.3 | (missing) | (missing) | | (unavailable | : | [facility] | | | | + + + +--------+ + + + + | Result panel 181 | + + + + + +--------+ + + | | 2022-09-15 | [facility] | 89.1 | (missing) | (missing) | | (unavailable | | [facility] | | | | + + + +--------+ + + + + | Result panel 182 | + + + + + +--------+ + + | | 2022-09-15 | [facility] | 29.3 | (missing) | (missing) | | (unavailable | | [facility] | | | | + + + +--------+ + + + + | Result panel 183 | + + + + + +--------+ + + | | 2022-09-15 | [facility] | 32.8 | (missing) | (missing) | | (unavailable | 14:02:07 | [facility] | | | | + + + +--------+ + + + + | Result panel 184 | + + + + + +--------+ + + | | 2022-09-15 | [facility] | 17.3 | (missing) | (missing) | | (unavailable | 14:02:07 | [facility] | | | | + + + +--------+ + + + + | Result panel 185 | + + + + + +-------+ + + | | 2022-09-15 | [facility] | 165 | (missing) | (missing) | | (unavailable | 14:02:07 | [facility] | | | | + + + +-------+ + + Social History No information. Vital Signs + + + +---------+ | date | measurement | value | units | + + + +---------+ | 2022-01-25 00:00 | BMI | 32.4 | kg/m2 | + + + +---------+ | 2022-01-25 00:00 | BP_diastolic | 88 | mmHg | + + + +---------+ | 2022-01-25 00:00 | BP_systolic | 150 | mmHg | + + + +---------+ | 2022-01-25 00:00 | heart_rate | 70 | /min | + + + +---------+ | 2022-01-25 00:00 | height_metric | 167.64 | cm | + + + +---------+ | 2022-01-25 00:00 | height_standard | 66 | in | + + + +---------+ | 2022-01-25 00:00 | o2_saturation | 96 | % | + + + +---------+ | 2022-01-25 00:00 | respiration_rate | 16 | /min | + + + +---------+ | 2022-01-25 00:00 | temperature_metric | 36.83 | C | | | | | | + + + +---------+ | 2022-01-25 00:00 | | 98.3 | F | | | temperature_standar | | | | | d | | | + + + +---------+ | 2022-01-25 00:00 | weight_metric | 90.92 | kg | + + + +---------+ | 2022-01-25 00:00 | weight_standard | 200.44 | lb | + + + +---------+ | 2022-01-26 00:00 | BMI | 30.4 | kg/m2 | + + + +---------+ | 2022-01-26 00:00 | height_metric | 167.64 | cm | + + + +---------+ | 2022-01-26 00:00 | height_standard | 66 | in | + + + +---------+ | 2022-01-26 00:00 | weight_metric | 85.3 | kg | + + + +---------+ | 2022-01-26 00:00 | weight_standard | 188.05 | lb | + + + +---------+ | 2022-01-27 00:00 | BP_diastolic | 78 | mmHg | + + + +---------+ | 2022-01-27 00:00 | BP_systolic | 158 | mmHg | + + + +---------+ | 2022-01-27 00:00 | heart_rate | 91 | /min | + + + +---------+ | 2022-01-27 00:00 | o2_saturation | 100 | % | + + + +---------+ | 2022-01-27 00:00 | respiration_rate | 16 | /min | + + + +---------+ | 2022-01-27 00:00 | temperature_metric | 36.72 | C | | | | | | + + + +---------+ | 2022-01-27 00:00 | | 98.1 | F | | | temperature_standar | | | | | d | | | + + + +---------+ | 2022-03-04 00:00 | BMI | 33.8 | kg/m2 | + + + +---------+ | 2022-03-04 00:00 | BP_diastolic | 79 | mmHg | + + + +---------+ | 2022-03-04 00:00 | BP_systolic | 132 | mmHg | + + + +---------+ | 2022-03-04 00:00 | heart_rate | 75 | /min | + + + +---------+ | 2022-03-04 00:00 | height_metric | 167.64 | cm | + + + +---------+ | 2022-03-04 00:00 | height_standard | 66 | in | + + + +---------+ | 2022-03-04 00:00 | o2_saturation | 96 | % | + + + +---------+ | 2022-03-04 00:00 | respiration_rate | 19 | /min | + + + +---------+ | 2022-03-04 00:00 | temperature_metric | 36.67 | C | | | | | | + + + +---------+ | 2022-03-04 00:00 | | 98 | F | | | temperature_standar | | | | | d | | | + + + +---------+ | 2022-03-04 00:00 | weight_metric | 95 | kg | + + + +---------+ | 2022-03-04 00:00 | weight_standard | 209.44 | lb | + + + +---------+ | 2022-09-15 00:00 | BMI | 34.2 | kg/m2 | + + + +---------+ | 2022-09-15 00:00 | BP_diastolic | 66 | mmHg | + + + +---------+ | 2022-09-15 00:00 | BP_systolic | 142 | mmHg | + + + +---------+ | 2022-09-15 00:00 | heart_rate | 72 | /min | + + + +---------+ | 2022-09-15 00:00 | height_metric | 167.64 | cm | + + + +---------+ | 2022-09-15 00:00 | height_standard | 66 | in | + + + +---------+ | 2022-09-15 00:00 | o2_saturation | 96 | % | + + + +---------+ | 2022-09-15 00:00 | respiration_rate | 22 | /min | + + + +---------+ | 2022-09-15 00:00 | temperature_metric | 36.94 | C | | | | | | + + + +---------+ | 2022-09-15 00:00 | | 98.5 | F | | | temperature_standar | | | | | d | | | + + + +---------+ | 2022-09-15 00:00 | weight_metric | 96.16 | kg | + + + +---------+ | 2022-09-15 00:00 | weight_standard | 212 | lb | + + + +---------+"
--- OUTSIDE RECORDS SUMMARY | ~2022-09-17 | XMS | Continuity of Care Document ---
Demographics + + + | Address | [address] | | | [place] [address] | + + + | Preferred Language | Unknown | + + + | Marital Status | | + + + | Baptism Affiliation | Unknown | + + + | Race | White | + + + | Ethnic Group | Not or | + + + Author + + + | Author | [facility] | + + + | Organization | [facility] | + + + | Address | [address] | | | [place] [address] | + + + | Phone | | + + + Care Team Providers + + + + | [facility] Operations Assistant Name | Role | Phone | + [...] + | 2020-07-01 00:00 | Tdap | [facility] | + + + + | 2020-07-01 00:00 | Tdap | [facility] | + + + + | 2020-07-01 00:00 | Tdap | [facility] | + + + + | 2020-07-01 00:00 | Tdap | [facility] | + + + + Medications + + + + | date | description | facility | + + + + | 2022-01-25 00:00 | DOXAZOSIN MESYLATE | [facility] | + + + + | 2022-01-27 00:00 | DOXAZOSIN MESYLATE | [facility] | + + + + | 2022-03-04 00:00 | DOXAZOSIN MESYLATE | [facility] | + + + + | 2022-06-09 00:00 | DOXAZOSIN MESYLATE | [facility] | + + + + | 2022-09-15 00:00 | DOXAZOSIN MESYLATE | [facility] | + + + + | 2022-01-25 00:00 | OXYCODONE HCL | [facility] | + + + + | 2022-01-27 00:00 | OXYCODONE HCL | [facility] | + + + + | 2022-03-04 00:00 | OXYCODONE HCL | [facility] | + + + + | 2022-06-09 00:00 | OXYCODONE HCL | [facility] | + + + + | 2022-09-15 00:00 | OXYCODONE HCL | [facility] | + + + + | 2013-06-04 00:00 | MAGNESIUM CITRATE | [facility] | + + + + | 2013-06-04 00:00 | MAGNESIUM CITRATE | [facility] | + + + + | 2013-06-04 00:00 | MAGNESIUM CITRATE | [facility] | + + + + | 2013-06-04 00:00 | MAGNESIUM CITRATE | [facility] | + + + + | 2022-01-25 00:00 | BICALUTAMIDE | [facility] | + + + + | 2022-01-27 00:00 | BICALUTAMIDE | [facility] | + + + + | 2022-03-04 00:00 | BICALUTAMIDE | [facility] | + + + + | 2022-06-09 00:00 | BICALUTAMIDE | [facility] | + + + + | 2022-09-15 00:00 | BICALUTAMIDE | [facility] | + + + + | 2022-01-25 00:00 | PHENAZOPYRIDINE HCL | [facility] | + + + + | 2022-01-25 00:00 | PHENAZOPYRIDINE HCL | [facility] | + + + + | 2022-01-25 00:00 | PHENAZOPYRIDINE HCL | [facility] | + + + + | 2022-01-25 00:00 | PHENAZOPYRIDINE HCL | [facility] | + + + + | 2022-01-25 00:00 | Turmeric Root Extract | [facility] | + + + + | 2022-01-27 00:00 | Turmeric Root Extract | [facility] | + + + + | 2022-03-04 00:00 | Turmeric Root Extract | [facility] | + + + + | 2022-06-09 00:00 | Turmeric Root Extract | [facility] | + + + + | 2022-09-15 00:00 | Turmeric Root Extract | [facility] | + + + + | 2022-01-25 00:00 | [facility] | [facility] | | | CIT | | + + + + | 2022-01-27 00:00 | VIT B6/MAG CIT & OX/POTASS | [facility] | | | CIT | | + + + + | 2022-03-04 00:00 | [facility] | [facility] | | | CIT | | + + + + | 2022-06-09 00:00 | VIT B6/MAG CIT & OX/POTASS | [facility] | | | CIT | | + + + + | 2022-09-15 00:00 | VIT B6/MAG CIT & OX/POTASS | [facility] | | | CIT | | + + + + | 2022-01-25 00:00 | CA CARB/VIT D3/MAG OX/ZN | [facility] | | | OXIDE | | + + + + | 2022-01-27 00:00 | CA CARB/VIT D3/MAG OX/ZN | [facility] | | | OXIDE | | + + + + | 2022-03-04 00:00 | CA CARB/VIT D3/MAG OX/ZN | [facility] | | | OXIDE | | + + + + | 2022-06-09 00:00 | CA CARB/VIT D3/MAG OX/ZN | [facility] | | | OXIDE | | + + + + | 2022-09-15 00:00 | CA CARB/VIT D3/MAG OX/ZN | [facility] | | | OXIDE | | + + + + | 2013-06-04 00:00 | DOCUSATE SODIUM | [facility] | + + + + | 2013-06-04 00:00 | DOCUSATE SODIUM | [facility] | + + + + | 2013-06-04 00:00 | DOCUSATE SODIUM | [facility] | + + + + | 2013-06-04 00:00 | DOCUSATE SODIUM | [facility] | + + + + | 2022-01-25 00:00 | IRBESARTAN | [facility] | + + + + | 2022-01-27 00:00 | IRBESARTAN | [facility] | + + + + | 2022-03-04 00:00 | IRBESARTAN | [facility] | + + + + | 2022-06-09 00:00 | IRBESARTAN | [facility] | + + + + | 2022-09-15 00:00 | IRBESARTAN | [facility] | + + + + | 2014-01-23 00:00 | DOXYCYCLINE HYCLATE | [facility] | + + + + | 2014-01-23 00:00 | DOXYCYCLINE HYCLATE | [facility] | + + + + | 2014-01-23 00:00 | DOXYCYCLINE HYCLATE | [facility] | + + + + | 2014-01-23 00:00 | DOXYCYCLINE HYCLATE | [facility] | + + + + | 2022-01-25 00:00 | DOXYCYCLINE MONOHYDRATE | [facility] | + + + + | 2022-01-27 00:00 | DOXYCYCLINE MONOHYDRATE | [facility] | + + + + | 2022-03-04 00:00 | DOXYCYCLINE MONOHYDRATE | [facility] | + + + + | 2022-06-09 00:00 | DOXYCYCLINE MONOHYDRATE | [facility] | + + + + | 2022-09-15 00:00 | DOXYCYCLINE MONOHYDRATE | [facility] | + + + + | 2022-09-15 00:00 | CARBIDOPA/LEVODOPA | [facility] | + + + + | 2022-01-25 00:00 | CIPROFLOXACIN HCL | [facility] | + + + + | 2022-01-27 00:00 | CIPROFLOXACIN HCL | [facility] | + + + + | 2022-03-04 00:00 | CIPROFLOXACIN HCL | [facility] | + + + + | 2022-06-09 00:00 | CIPROFLOXACIN HCL | [facility] | + + + + | 2022-09-15 00:00 | CIPROFLOXACIN HCL | [facility] | + + + + | 2022-01-25 00:00 | POTASSIUM CHLORIDE | [facility] | + + + + | 2022-01-27 00:00 | POTASSIUM CHLORIDE | [facility] | + + + + | 2022-03-04 00:00 | POTASSIUM CHLORIDE | [facility] | + + + + | 2022-06-09 00:00 | POTASSIUM CHLORIDE | [facility] | + + + + | 2022-09-15 00:00 | POTASSIUM CHLORIDE | [facility] | + + + + | 2022-01-25 00:00 | TORSEMIDE | [facility] | + + + + | 2022-01-27 00:00 | TORSEMIDE | [facility] | + + + + | 2022-03-04 00:00 | TORSEMIDE | [facility] | + + + + | 2022-06-09 00:00 | TORSEMIDE | [facility] | + + + + | 2022-09-15 00:00 | TORSEMIDE | [facility] | + + + + | 2022-01-25 00:00 | ASCORBIC ACID | [facility] | + + + + | 2022-01-27 00:00 | ASCORBIC ACID | [facility] | + + + + | 2022-03-04 00:00 | ASCORBIC ACID | [facility] | + + + + | 2022-06-09 00:00 | ASCORBIC ACID | [facility] | + + + + | 2022-09-15 00:00 | ASCORBIC ACID | [facility] | + + + + | 2022-01-25 00:00 | BICALUTAMIDE | [facility] | + + + + | 2022-01-27 00:00 | BICALUTAMIDE | [facility] | + + + + | 2022-03-04 00:00 | BICALUTAMIDE | [facility] | + + + + | 2022-06-09 00:00 | BICALUTAMIDE | [facility] | + + + + | 2022-09-15 00:00 | BICALUTAMIDE | [facility] | + + + + | 2022-01-25 00:00 | FINASTERIDE | [facility] | + + + + | 2022-01-27 00:00 | FINASTERIDE | [facility] | + + + + | 2022-03-04 00:00 | FINASTERIDE | [facility] | + + + + | 2022-06-09 00:00 | FINASTERIDE | [facility] | + + + + | 2022-09-15 00:00 | FINASTERIDE | [facility] | + + + + | 2022-01-25 00:00 | UBIDECARENONE | [facility] | + + + + | 2022-01-27 00:00 | UBIDECARENONE | [facility] | + + + + | 2022-03-04 00:00 | UBIDECARENONE | [facility] | + + + + | 2022-06-09 00:00 | UBIDECARENONE | [facility] | + + + + | 2022-09-15 00:00 | UBIDECARENONE | [facility] | + + + + | 2022-01-25 00:00 | ASCORBIC ACID | [facility] | + + + + | 2022-01-27 00:00 | ASCORBIC ACID | [facility] | + + + + | 2022-03-04 00:00 | ASCORBIC ACID | [facility] | + + + + | 2022-06-09 00:00 | ASCORBIC ACID | [facility] | + + + + | 2022-09-15 00:00 | ASCORBIC ACID | [facility] | + + + + | 2022-01-25 00:00 | ASPIRIN | [facility] | + + + + | 2022-01-27 00:00 | ASPIRIN | [facility] | + + + + | 2022-03-04 00:00 | ASPIRIN | [facility] | + + + + | 2022-06-09 00:00 | ASPIRIN | [facility] | + + + + | 2022-09-15 00:00 | ASPIRIN | [facility] | + + + + | 2022-01-27 00:00 | CEFPODOXIME PROXETIL | [facility] | + + + + | 2022-01-25 00:00 | HYDROCHLOROTHIAZIDE | [facility] | + + + + | 2022-01-27 00:00 | HYDROCHLOROTHIAZIDE | [facility] | + + + + | 2022-03-04 00:00 | HYDROCHLOROTHIAZIDE | [facility] | + + + + | 2022-06-09 00:00 | HYDROCHLOROTHIAZIDE | [facility] | + + + + | 2022-09-15 00:00 | HYDROCHLOROTHIAZIDE | [facility] | + + + + | 2022-03-04 00:00 | LEVOFLOXACIN | [facility] | + + + + | 2022-03-04 00:00 | LEVOFLOXACIN | [facility] | + + + + | 2022-03-04 00:00 | LEVOFLOXACIN | [facility] | + + + + | 2022-01-25 00:00 | CYANOCOBALAMIN (VITAMIN | [facility] | | | B-12) | | + + + + | 2022-01-27 00:00 | CYANOCOBALAMIN (VITAMIN | [facility] | | | B-12) | | + + + + | 2022-03-04 00:00 | CYANOCOBALAMIN (VITAMIN | [facility] | | | B-12) | | + + + + | 2022-06-09 00:00 | CYANOCOBALAMIN (VITAMIN | [facility] | | | B-12) | | + + + + | 2022-09-15 00:00 | CYANOCOBALAMIN (VITAMIN | [facility] | | | B-) | | + + + + | 2019-03-09 00:00 | ASPIRIN | [facility] | + + + + | 2019-03-09 00:00 | ASPIRIN | [facility] | + + + + | 2019-03-09 00:00 | ASPIRIN | [facility] | + + + + | 2019-03-09 00:00 | ASPIRIN | [facility] | + + + + | 2022-01-25 00:00 | NITROFURANTOIN MONOHYD | [facility] | | | MACROCR | | + + + + | 2022-01-25 00:00 | NITROFURANTOIN MONOHYD | [facility] | | | MACROCR | | + + + + | 2022-01-25 00:00 | NITROFURANTOIN MONOHYD | [facility] | | | MACROCR | | + + + + | 2022-01-25 00:00 | NITROFURANTOIN MONOHYD | [facility] | | | MACROCR | | + + + + | 2022-01-25 00:00 | ATORVASTATIN CALCIUM | [facility] | + + + + | 2022-01-27 00:00 | ATORVASTATIN CALCIUM | [facility] | + + + + | 2022-03-04 00:00 | ATORVASTATIN CALCIUM | [facility] | + + + + | 2022-06-09 00:00 | ATORVASTATIN CALCIUM | [facility] | + + + + | 2022-09-15 00:00 | ATORVASTATIN CALCIUM | [facility] | + + + + | 2019-03-09 00:00 | ATORVASTATIN | [facility] | + + + + | 2019-03-09 00:00 | ATORVASTATIN | [facility] | + + + + | 2019-03-09 00:00 | ATORVASTATIN | [facility] | + + + + | 2019-03-09 00:00 | ATORVASTATIN | [facility] | + + + + | 2014-01-23 00:00 | AMOXICILLIN/POTASSIUM CLAV | [facility] | | | | | + + + + | 2014-01-23 00:00 | AMOXICILLIN/POTASSIUM CLAV | [facility] | | | | | + + + + | 2014-01-23 00:00 | AMOXICILLIN/POTASSIUM CLAV | [facility] | | | | | + + + + | 2014-01-23 00:00 | AMOXICILLIN/POTASSIUM CLAV | [facility] | | | | | + + + + | 2020-07-01 00:00 | AMOXICILLIN/POTASSIUM CLAV | [facility] | | | | | + + + + | 2020-07-01 00:00 | AMOXICILLIN/POTASSIUM CLAV | [facility] | | | | | + + + + | 2020-07-01 00:00 | AMOXICILLIN/POTASSIUM CLAV | [facility] | | | | | + + + + | 2020-07-01 00:00 | AMOXICILLIN/POTASSIUM CLAV | [facility] | | | | | + + + + | 2022-01-25 00:00 | DILTIAZEM HCL | [facility] | + + + + | 2022-01-27 00:00 | DILTIAZEM HCL | [facility] | + + + + | 2022-03-04 00:00 | DILTIAZEM HCL | [facility] | + + + + | 2022-06-09 00:00 | DILTIAZEM HCL | [facility] | + + + + | 2022-09-15 00:00 | DILTIAZEM HCL | [facility] | + + + + | 2022-09-15 00:00 | DILTIAZEM HCL | [facility] | + + + + | 2022-01-25 00:00 | DILTIAZEM HCL | [facility] | + + + + | 2022-01-27 00:00 | DILTIAZEM HCL | [facility] | + + + + | 2022-03-04 00:00 | DILTIAZEM HCL | [facility] | + + + + | 2022-06-09 00:00 | DILTIAZEM HCL | [facility] | + + + + | 2022-09-15 00:00 | DILTIAZEM HCL | [facility] | + + + + | 2022-01-25 00:00 | TOLTERODINE TARTRATE | [facility] | + + + + | 2022-01-27 00:00 | TOLTERODINE TARTRATE | [facility] | + + + + | 2022-03-04 00:00 | TOLTERODINE TARTRATE | [facility] | + + + + | 2022-06-09 00:00 | TOLTERODINE TARTRATE | [facility] | + + + + | 2022-09-15 00:00 | TOLTERODINE TARTRATE | [facility] | + + + + | 2022-01-25 00:00 | WARFARIN SODIUM | [facility] | + + + + | 2022-01-27 00:00 | WARFARIN SODIUM | [facility] | + + + + | 2022-03-04 00:00 | WARFARIN SODIUM | [facility] | + + + + | 2022-06-09 00:00 | WARFARIN SODIUM | [facility] | + + + + | 2022-09-15 00:00 | WARFARIN SODIUM | [facility] | + + + + | 2022-01-25 00:00 | HYDROCODONE | [facility] | | | BIT/ACETAMINOPHEN | | + + + + | 2022-01-27 00:00 | HYDROCODONE | [facility] | | | BIT/ACETAMINOPHEN | | + + + + | 2022-03-04 00:00 | HYDROCODONE | [facility] | | | BIT/ACETAMINOPHEN | | + + + + | 2022-06-09 00:00 | HYDROCODONE | [facility] | | | BIT/ACETAMINOPHEN | | + + + + | 2022-09-15 00:00 | HYDROCODONE | [facility] | | | BIT/ACETAMINOPHEN | | + + + + | 2022-01-25 00:00 | OXYBUTYNIN CHLORIDE | [facility] | + + + + | 2022-01-25 00:00 | OXYBUTYNIN CHLORIDE | [facility] | + + + + | 2022-01-25 00:00 | OXYBUTYNIN CHLORIDE | [facility] | + + + + | 2022-01-25 00:00 | OXYBUTYNIN CHLORIDE | [facility] | + + + + | 2022-01-25 00:00 | OXYBUTYNIN CHLORIDE | [facility] | + + + + | 2022-01-27 00:00 | OXYBUTYNIN CHLORIDE | [facility] | + + + + | 2022-03-04 00:00 | OXYBUTYNIN CHLORIDE | [facility] | + + + + | 2022-06-09 00:00 | OXYBUTYNIN CHLORIDE | [facility] | + + + + | 2022-09-15 00:00 | OXYBUTYNIN CHLORIDE | [facility] | + + + + | 2022-01-25 00:00 | LOSARTAN POTASSIUM | [facility] | + + + + | 2022-01-27 00:00 | LOSARTAN POTASSIUM | [facility] | + + + + | 2022-03-04 00:00 | LOSARTAN POTASSIUM | [facility] | + + + + | 2022-06-09 00:00 | LOSARTAN POTASSIUM | [facility] | + + + + | 2022-09-15 00:00 | LOSARTAN POTASSIUM | [facility] | + + + + Problems + + + + | date | description | facility | + + + + | 2014-01-23 00:00 | Left lower lobe pneumonia | [facility] | + + + + | 2014-01-23 00:00 | Left lower lobe pneumonia | [facility] | + + + + | 2014-01-23 00:00 | Left lower lobe pneumonia | [facility] | + + + + | 2014-01-23 00:00 | Left lower lobe pneumonia | [facility] | + + + + | 2020-07-01 00:00 | Avulsion of skin of face | [facility] | + + + + | 2020-07-01 00:00 | Avulsion of skin of face | [facility] | + + + + | 2020-07-01 00:00 | Avulsion of skin of face | [facility] | + + + + | 2020-07-01 00:00 | Avulsion of skin of face | [facility] | + + + + | 2020-07-01 00:00 | Fracture of nasal bone | [facility] | + + + + | 2020-07-01 00:00 | Fracture of nasal bone | [facility] | + + + + | 2020-07-01 00:00 | Fracture of nasal bone | [facility] | + + + + | 2020-07-01 00:00 | Fracture of nasal bone | [facility] | + + + + | 2020-07-01 00:00 | Minor head injury | [facility] | + + + + | 2020-07-01 00:00 | Minor head injury | [facility] | + + + + | 2020-07-01 00:00 | Minor head injury | [facility] | + + + + | 2020-07-01 00:00 | Minor head injury | [facility] | + + + + | 2021-03-14 00:00 | Transient ischemic attack | [facility] | + + + + | 2021-03-14 00:00 | Transient ischemic attack | [facility] | + + + + | 2021-03-14 00:00 | Transient ischemic attack | [facility] | + + + + | 2021-03-14 00:00 | Transient ischemic attack | 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 | | + + + + | 2021-12-03 08:00 | ENCOUNTER FOR THERAPEUTIC | [facility] | | | DRUG LEVEL MONITORING | | + + + + | 2021-12-03 08:00 | HOME CARE AIDE (CURRENT) USE OF | [facility] | | | ANTICOAGULANTS | | + + + + | 2021-12-03 08:00 | 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 | + + + + | 2022-01-25 00:00 | Sepsis | [facility] | + + + + | 2022-01-25 00:00 | Sepsis | [facility] | + + + + | 2022-01-25 00:00 | Sepsis | [facility] | + + + + | 2022-01-25 00:00 | Urinary tract infection | [facility] | + + + + | 2022-01-25 00:00 | Urinary tract infection | [facility] | + + + + | 2022-01-25 00:00 | Urinary tract infection | [facility] | + + + + | 2022-01-25 00:00 | Urinary tract infection | [facility] | + + + + | 2022-01-25 [...] + + | 2022-01-25 00:42 | OTHER HOME CARE AIDE (CURRENT) | [facility] | | | DRUG [...] + | 2022-01-25 18:42 | DEM IN [facility] DIS [facility] | [facility] | | | [...] + + + | 2022-01-25 18:42 | [facility] (CURRENT) USE OF | [facility] | | | ASPIRIN | | + + + + | 2022-01-25 18:42 | OTHER HOME CARE AIDE (CURRENT) | [facility] | | | DRUG [...] + | 2022-03-04 00:00 | Pneumonia | [facility] | + + + + | 2022-03-04 00:00 | Pneumonia | [facility] | + + + + | 2022-03-04 00:00 | Pneumonia | 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 | | | congestive heart failure | [...] (missing) | | (unavailable | 05:08 | Jadno | | | | | ) | [...] (missing) | | (unavailable | 14:02:07 | Jaodn | | | | | ) | [...]
[~2022-09-17 16:05] MED LIST changes: +CARBIDOPA-LEVO1 EAC1 PO; +DILTIAZEM 24HR240 M1 PO; +LEVOFLOXACIN750 MG PO
--- OUTSIDE RECORDS SUMMARY | 2022-09-17 16:08 | XMS ---
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 E.Donnie VISIT COUNT (12 MO.) [address] [place] [address] TOTAL 5 NOTE: Visits indicate total known visits. ED/UCC VISIT TRACKING (12 MO.) 09/17/2022 16:06 [facility] TYPE: Emergency COMPLAINT: - L LEG SWELLING 09/15/2022 12:37 [facility] TYPE: Emergency COMPLAINT: - SOB, SWOLLEN FEET 03/04/2022 09:23 [facility] [place] TYPE: Emergency COMPLAINT: - L SHOULDER/CHEST/UNDER ARM PAIN DIAGNOSES: - Chest pain, unspecified - Pneumonia, unspecified organism 01/25/2022 16:39 [facility] TYPE: Emergency COMPLAINT: - URINE PROBLEM 01/25/2022 00:42 [facility] TYPE: Emergency COMPLAINT: - UNABLE TO URINATE AND HIGH BLOOS PRESSURE DIAGNOSES: - Essential (primary) hypertension - Hematuria, unspecified - 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 - Personal history of transient ischemic attack (TIA), and cerebral infarction without residual deficits - Unspecified hydronephrosis - Urinary tract infection, site not specified INPATIENT VISIT TRACKING (12 MO.) 01/25/2022 18:42 [facility] [place] TYPE: Medical Surgical COMPLAINT: - UTI DIAGNOSES: - Acquired absence of other genital organ(s) - Acquired absence of other genital organ(s) - Cardiomyopathy, unspecified - Cardiomyopathy, unspecified - Contact with and (suspected) exposure to COVID-19 - Contact with and (suspected) exposure to COVID-19 - Dementia in other diseases classified elsewhere, unspecified severity, without behavioral disturbance, psychotic disturbance, mood disturbance, and anxiety - Dementia in other diseases classified elsewhere, unspecified severity, without behavioral disturbance, psychotic disturbance, mood disturbance, and anxiety - Essential (primary) hypertension - Essential (primary) hypertension - Hypokalemia - Hypokalemia - longterm (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 aspirin - longterm (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 aspirin - Metabolic encephalopathy - Obstructive sleep apnea (adult) (pediatric) - Obstructive sleep apnea (adult) (pediatric) - 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 - Other senior care (current) drug therapy - Parkinson's disease - Parkinson's disease - Personal history of irradiation - Personal history of irradiation - Personal history of malignant neoplasm of prostate - Personal history of malignant neoplasm of prostate - Personal history of transient ischemic attack (TIA), and cerebral infarction without residual deficits - Personal history of transient ischemic attack (TIA), and cerebral infarction without residual deficits - Presence of other heart-valve replacement - Presence of other heart-valve replacement - Sepsis, unspecified organism - Urinary tract infection, site not specified - Urinary tract infection, site not specified [email or web address]
[2022-09-17] MEDS ORDERED: ELIQUIS5 MG PO (16:33)
[2022-09-17 16:43] VITALS: BP 130/70
== END 2022-09-17 16:49 | disposition home or self-care (01) ==
LOC: ED 16:05
DX: I82.402 Acute embolism and thrombosis of unspecified deep veins of left lower extremity (principal); I10 Essential (primary) hypertension; Z79.82 Long term (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 aspirin; Z79.899 Other long term (current) drug therapy
CPT/HCPCS: 99283

== ENCOUNTER 2023-01-17 04:28 | Emergency (ER) | payer MEDICARE, OTHER ==
[~2023-01-17] VITALS: Ht 167.6 cm; Wt 96.3 kg
[~2023-01-17 04:28] MED LIST changes: +CEFDINIR300 MG PO; +ELIQUIS5 MG PO; +MAGNESIUM OXID500 M1 PO; +POTASSIUM CHLO20 ME1 PO
--- OUTSIDE RECORDS SUMMARY | 2023-01-17 04:37 | XMS ---
PreManage Notification: DANNA ORDOÑEZ Security Residential Driver Events No recent Security Events currently on file CRITERIA MET - 6 ED Visits in 6 Months CARE PROVIDERS [facility] Current PHONE: Unknown Jair has no Care Guidelines for this patient. Maria L VISIT COUNT (12 MO.) 10 GHISLAINE Ballesteros TOTAL 10 NOTE: Visits indicate total known visits. ED/UCC VISIT TRACKING (12 MO.) 01/17/2023 04:29 [facility]ISLAINE Alonzo [place] TYPE: Emergency COMPLAINT: - BLOOD IN URINE 11/08/2022 03:53 [facility]LAINE Alonzo [place] TYPE: Emergency COMPLAINT: - CONFUSION DIAGNOSES: - Dizziness and giddiness - Essential (primary) hypertension - screedman (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 aspirin - Other bag printer (current) drug therapy - Parkinson's disease 11/03/2022 19:23 [facility]LA[facility] [place] TYPE: Emergency COMPLAINT: - URINE PROBLEM 11/03/2022 10:54 [facility]LAINE Alonzo [place] TYPE: Emergency COMPLAINT: - POSS UTI DIAGNOSES: - Dysuria - Essential (primary) hypertension - detention (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 anticoagulants - screedman (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 aspirin - Other retirement (current) drug therapy - Personal history of transient ischemic attack (TIA), and cerebral infarction without residual deficits - Urinary tract infection, site not specified 09/18/2022 07:49 [facility]ISLAINE Alonzo [place] TYPE: Emergency COMPLAINT: - CHEST PAIN, SOB DIAGNOSES: - Acute embolism and thrombosis of left femoral vein - Acute embolism and thrombosis of left peroneal vein - Acute embolism and thrombosis of left popliteal vein - Acute embolism and thrombosis of left tibial vein - Essential (primary) hypertension - detention (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 anticoagulants - detention (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 aspirin - Other chest pain - Personal history of malignant neoplasm of prostate - Personal history of other venous thrombosis and embolism - Shortness of breath 09/17/2022 16:06 [facility]ISLAINE Alonzo [place] TYPE: Emergency COMPLAINT: - L LEG SWELLING DIAGNOSES: - Acute embolism and thrombosis of unspecified deep veins of left lower extremity - Essential (primary) hypertension - detention (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 aspirin - Other bag printer (current) drug therapy 09/15/2022 12:37 [facility]ISLAINE Alon[facility] [place] TYPE: Emergency COMPLAINT: - SOB, SWOLLEN FEET DIAGNOSES: - Heart failure, unspecified - Hypertensive heart disease with heart failure - screedman (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 aspirin - Other bag printer (current) drug therapy - Personal history of transient ischemic attack (TIA), and cerebral infarction without residual deficits - Shortness of breath 03/04/2022 09:23 [facility]LAINE Alonzo [place] TYPE: Emergency COMPLAINT: - L SHOULDER/CHEST/UNDER ARM PAIN DIAGNOSES: - Chest pain, unspecified - Pneumonia, unspecified organism 01/25/2022 16:39 [facility]ISLAINE Alonzo [place] TYPE: Emergency COMPLAINT: - URINE PROBLEM 01/25/2022 00:42 [facility]ISLAINE Alonzo [place] TYPE: Emergency COMPLAINT: - UNABLE TO URINATE AND HIGH BLOOS PRESSURE DIAGNOSES: - Essential (primary) hypertension - Hematuria, unspecified - Other retirement (current) drug therapy - Personal history of transient ischemic attack (TIA), and cerebral infarction without residual deficits - Unspecified hydronephrosis - Urinary tract infection, site not specified INPATIENT VISIT TRACKING (12 MO.) 11/03/2022 19:24 GHISLAINE Alonzo [place] TYPE: Observation COMPLAINT: - UTI DIAGNOSES: - Acquired absence of other genital organ(s) - Hyperlipidemia, unspecified - Parkinson's disease - Urinary tract infection, site not specified 01/25/2022 18:42 GHISLAINE Alonzo [place] TYPE: Medical [...] (primary) hypertension - Hypokalemia - Hypokalemia - screedman (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 aspirin - detention (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 aspirin - Metabolic encephalopathy - Obstructive sleep apnea (adult) (pediatric) - Obstructive sleep apnea (adult) (pediatric) - Other retirement (current) drug therapy - 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
[2023-01-17 05:10] LABS: HEMATOCRIT 35.8 % (35.0-50.0); MCV 93.6 fl (81-99); RDW 15.6 (10.5-15.0)
[2023-01-17 05:14] LABS: BASOPHILS 0.9 % (0-2); EOSINOPHILS 1.6 % (0-6); HEMOGLOBIN 11.9 g/dL (12.0-18.0); LYMPHOCYTES 4.5 % (24-44); MCH 31.2 (27-36); MCHC 33.3 g/dl (30-36); MONOCYTES 6.2 % (0-12); NEUTROPHILS 86.8 % (39-80); PLATELET COUNT 186 K/uL (140-440); RBC 3.82 M/ul (4.3-5.7)
[2023-01-17 05:24] LABS: ALBUMIN 3.8 g/dL (3.4-5.0); ALBUMIN/GLOBULIN RATIO 1.23 (1.1-2.4); ANION GAP 9.7 (7-21); BILIRUBIN, TOTAL 0.8 ng/dL (0.2-1.0); BUN/CREATININE RATIO 20.63 (6.0-28.6); CALCIUM 8.3 mg/dL (8.5-10.1); CREATININE, SERUM 1.26 mg/dL (0.70-1.30); POTASSIUM 3.7 mmol/L (3.5-5.1); PROTEIN, TOTAL 6.9 g/dL (6.4-8.2)
[2023-01-17 06:08] LABS: BILIRUBIN, URINE NEGATIVE (negative); BLOOD/HGB, URINE LARGE (Negative); KETONE, URINE NEGATIVE (Negative); LEUK ESTERASE, URINE MODERATE (negative); NITRITE, URINE NEGATIVE (negative)
[2023-01-17 06:17] LABS: BACTERIA, URINE 2+ /hpf (negative); CASTS, URINE NONE SEEN \\lpf; CRYSTALS, URINE NONE SEEN (0-1+); EPITHELIAL CELLS, URINE SQUAMOUS 1+ /lpf (0-1+); RED BLOOD CELLS, URINE >50 /hpf (0-5); WHITE BLOOD CELLS, URINE 21-40 /HPF (0-5)
[2023-01-17 06:18] LABS: COLLECTION TYPE, URINE CLEAN CATCH; REFLEX CULTURE, URINE Yes (No)
[2023-01-17] MEDS ORDERED: CEFDINIR300 MG PO (06:22)
[2023-01-17 07:19] VITALS: BP 142/85
== END 2023-01-17 07:21 | disposition home or self-care (01) ==
LOC: ED 04:28
PROVIDERS: Family Medicine
DX: N39.0 Urinary tract infection, site not specified (principal); I10 Essential (primary) hypertension; G20.A1 Parkinson's disease without dyskinesia, without mention of fluctuations; F02.A0 Dementia in other diseases classified elsewhere, mild, without behavioral disturbance, psychotic disturbance, mood disturbance, and anxiety; Z79.82 Long term (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 aspirin; Z79.01 Long term (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 anticoagulants; Z79.899 Other long term (current) drug therapy
CPT/HCPCS: 36415; 51701; 51798; 80053; 81001; 85025; 87088; 99283-25; J0696; J7040

== ENCOUNTER 2023-07-15 10:55 | Observation (INO) | payer MEDICARE, OTHER ==
[~2023-07-15] VITALS: Ht 167.6 cm; Wt 97.1 kg
[~2023-07-15 10:55] MED LIST changes: +CEPHALEXIN500 M1 PO; +VALSARTAN80 MG PO
--- OUTSIDE RECORDS SUMMARY | 2023-07-15 11:04 | XMS ---
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 Jair has no Care Guidelines for this patient. Maria L VISIT COUNT (12 MO.) 10 [facility] [place] TOTAL 10 NOTE: Visits indicate total known visits. ED/[facility] [place] [place] VISIT TRACKING (12 MO.) 07/15/2023 10:56 [facility] [place] COMPLAINT: - FALL, LEANING RIGHT, HEAVY BREATHING 06/27/2023 01:18 [facility] [place] TYPE: Emergency COMPLAINT: - URINE BLOOD DIAGNOSES: - Essential (primary) hypertension - Hematuria, unspecified - Other clinical laboratory medical director (current) drug therapy - Personal history of transient ischemic attack (TIA), and cerebral infarction without residual deficits - Urinary tract infection, site not specified 06/15/2023 20:[address] [facility] [address] [facility] Welch [place] TYPE: Emergency COMPLAINT: - URINE PROBLEM DIAGNOSES: - Essential (primary) hypertension - Hematuria, unspecified - Other clinical laboratory medical director (current) drug therapy - Personal history of transient ischemic attack (TIA), and cerebral infarction without residual deficits - Urinary tract infection, site not specified 01/17/2023 04:29 [facility] [place] An[place] Welch [place] TYPE: Emergency COMPLAINT: - BLOOD IN URINE DIAGNOSES: - Dementia in other diseases classified elsewhere, mild, without behavioral disturbance, psychotic disturbance, mood disturbance, and anxiety - Essential (primary) hypertension - Hematuria, unspecified - joint terminal attack controller (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 anticoagulants - joint terminal attack controller (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 aspirin - Other clinical laboratory medical director (current) drug therapy - Parkinson's disease without dyskinesia, without mention of fluctuations - Urinary tract infection, site not specified - PARKINSON'S DIS W/O DYSKINESIA, W/O MENTION OF FLU 11/08/2022 03:53 GHISLAINE Alonzo [place] TYPE: Emergency COMPLAINT: - CONFUSION DIAGNOSES: - Dizziness and giddiness - Essential (primary) hypertension - [facility] (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 aspirin - Other senior living (current) drug therapy - Parkinson's disease 11/03/2022 19:23 [facility]ISLAINE Alonzo [place] TYPE: Emergency COMPLAINT: - URINE PROBLEM 11/03/2022 10:54 GHISLAINE Alonzo [place] TYPE: Emergency COMPLAINT: - POSS UTI DIAGNOSES: - Dysuria - Essential (primary) hypertension - joint terminal attack controller (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 anticoagulants - joint terminal attack controller (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 aspirin - Other clinical laboratory medical director (current) drug therapy - Personal history of [...] tibial vein - Essential (primary) hypertension - joint terminal attack controller (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 anticoagulants - [facility] (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 aspirin - Other chest pain - Personal history of malignant neoplasm of prostate - Personal history of other venous thrombosis and embolism - Shortness of breath 09/17/2022 16:06 [facility]ISLA[facility] Alonzo [place] TYPE: Emergency COMPLAINT: - L LEG SWELLING DIAGNOSES: - Acute embolism and thrombosis of unspecified deep veins of left lower extremity - Essential (primary) hypertension - joint terminal attack controller (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 aspirin - Other senior living (current) drug therapy 09/15/2022 12:37 GHISLAINE Alonzo [place] TYPE: Emergency COMPLAINT: - SOB, SWOLLEN FEET DIAGNOSES: - Heart failure, unspecified - Hypertensive heart disease with heart failure - [facility] (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 aspirin - Other senior living (current) drug therapy - Personal history of transient ischemic attack (TIA), and cerebral infarction without residual deficits - Shortness of breath INPATIENT VISIT TRACKING (12 MO.) 11/03/2022 19:24 GHISLAINE Alonzo [place] TYPE: Observation COMPLAINT: - UTI DIAGNOSES: - Acquired absence of other genital organ(s) - Hyperlipidemia, unspecified - Parkinson's disease - Urinary tract infection, site not specified [email or web address]
[2023-07-15 11:22] LABS: HEMATOCRIT 38.2 % (35.0-50.0); HEMOGLOBIN 12.8 g/dL (12.0-18.0); MCH 30.8 (27-36); MCHC 33.5 g/dl (30-36); MCV 92.1 fl (81-99); PLATELET COUNT 191 K/uL (140-440); RBC 4.14 M/ul (4.3-5.7); RDW 15.7 (10.5-15.0)
[2023-07-15 11:39] LABS: ALBUMIN 4.1 g/dL (3.4-5.0); ALBUMIN/GLOBULIN RATIO 1.14 (1.1-2.4); ANION GAP 13.8 (7-21); BILIRUBIN, TOTAL 1.7 ng/dL (0.2-1.0); BUN/CREATININE RATIO 20.28 (6.0-28.6); CALCIUM 9.2 mg/dL (8.5-10.1); CREATININE, SERUM 1.38 mg/dL (0.70-1.30); POTASSIUM 3.8 mmol/L (3.5-5.1); PROTEIN, TOTAL 7.7 g/dL (6.4-8.2)
[2023-07-15 11:43] LABS: LYMPHOCYTES, MANUAL DIFF 5; MONOCYTES, MANUAL DIFF 6; NEUTROPHILS, MANUAL DIFF 89
[2023-07-15 12:48] LABS: BILIRUBIN, URINE NEGATIVE (negative); BLOOD/HGB, URINE MODERATE (Negative); KETONE, URINE NEGATIVE (Negative); LEUK ESTERASE, URINE MODERATE (negative); NITRITE, URINE NEGATIVE (negative)
[2023-07-15 12:55] LABS: BACTERIA, URINE 2+ /hpf (negative); CASTS, URINE NONE SEEN \\lpf; COLLECTION TYPE, URINE CATH; CRYSTALS, URINE NONE SEEN (0-1+); EPITHELIAL CELLS, URINE 0 /lpf (0-1+); REFLEX CULTURE, URINE Yes (No); WHITE BLOOD CELLS, URINE 21-40 /HPF (0-5)
[2023-07-15] MEDS ORDERED: CEFTRIAXONE/SODIUM CHLORIDE 2 GM/100 ML PIGGYBACK IV ONE (13:00)
[2023-07-15] MEDS ORDERED: SODIUM CHLORIDE 0.9% 1,000 ML IV PRN (13:15)
[2023-07-15] MEDS ORDERED: ondansetron HCL 4 MG/2 ML VIAL IV PRN (14:00)
[2023-07-15] MEDS ORDERED: SODIUM CHLORIDE 0.9% 1,000 ML IV SCH (14:00)
[2023-07-15] MEDS ORDERED: ACETAMINOPHEN 325 MG TAB PO PRN (14:00)
--- NOTE | 2023-07-15 14:45 | NUR ---
REPORT FROM HOMAR FICTION AND NONFICTION WRITER PROSE - PT FROM CT ABD TO ER TO 128 CCU WITH THIS RN, AND ORACIO ORTIZ IN PT ROOM. PT MOVED FROM STRECHER TO BED. ALERT AND ORIENTED TO ROOM, AND CALL LIGHT, REG DIET. IV IN EACH ARM WNL, ATTENDS ON,
--- NOTE | 2023-07-15 14:56 | NUR ---
REQUESTED VISIT. ACCOMPANIED HER TO PT ROOM FROM ED. LISTENED EMPATHETICALLY TALKED OF RECENT FAMILY EVENTS AND PT HEALTH CHALLENGES. PROVIDED SUPPORTIVE PRESENCE, ASSURANCE, PRAYER. PT AND EXPRESSED GRATITUDE, HOPE.
[2023-07-15 15:00] VITALS: BP 115/56
--- NOTE | 2023-07-15 16:28 | NUR ---
dr villeda in with pt and , plan with pt to sit up in chair in about 30 min for dinner.
[2023-07-15] MEDS ORDERED: MULTI VITAMIN1 EACH PO (16:46)
[2023-07-15] MEDS ORDERED: TURMERIC500 M2 PO (16:46)
[2023-07-15] MEDS ORDERED: CO Q-10100 MG PO (16:46)
--- NOTE | 2023-07-15 16:48 | NUR ---
medications reconciled using pharmacy records and interview with
[2023-07-15 16:53] VITALS: BP 118/58
--- NOTE | 2023-07-15 17:11 | NUR ---
pt assisted up to stand [place] [place] [facility] [place] amt of urine, skin cleaned, attends changed and pt trsf pivot 2 person assist to sit up in chair for meal. denies needs, call light in reach and in room, dr villeda here.
--- NOTE | 2023-07-15 18:42 | NUR ---
pt up in chair - after walking to br with this rn to attempt void/bm - no results - inc urine, attends changed and skin cleaned. pt 1 person assist amb to chair and in room. denies needs, tollerated dinner well and drinks water well. IS given to pt to use - demonstrates well, coughs with use - temp axillary 99.0, encourage tcdb and increase use of IS to encourage lung activity.
--- NOTE | 2023-07-15 19:00 | NUR ---
REPORT RECEIVED AND CARE ASSUMED FROM CARMEN SCRUGGS. PT AT BEDSIDE.
--- NOTE | 2023-07-15 19:16 | NUR ---
new order to dc iv fluids - 475 ml ns entered in i/o, pt up in chair with call light - to home will return in am. denies needs, report to home health occupational therapist - claudette waddell.
[2023-07-15 20:00] VITALS: BP 122/51
--- NOTE | 2023-07-15 20:00 | NUR ---
PT ASSIST TO BR AND BACK TO BED WITHOUT INCIDENT. PT BRIEF CHANGED, MARI CARE PROVIDED. PT REMINDED TO USE CALL LIGHT WITH NEEDS. PT VERBALIZES UNDERSTANDING. PT REQUESTED SOCKS BE REMOVED WHILE IN BED. REQUEST PROVIDED. PT DENIES ADDITIONAL NEEDS. CALL LIGHT IN REACH, WATER IN REACH AND OTHER PERSONAL ITEMS IN REACH. BED IN LOW, LOCKED POSITION WITH BED ALARM ON FOR PT SAFETY.
--- NOTE | 2023-07-15 20:30 | NUR ---
PT ASSIST TO BR AND BACK TO BED WITH OUT INCIDENT. PERICARE PERFORMED. PT LINENS AND GOWN CHANGED. PT DENIES ADDITIONAL NEEDS. CALL LIGHT AND PERSONAL ITEMS IN REACH. BED IN LOW, LOCKED POSITION WITH BED ALARM ON. VSS AND NAD NOTED VIA PT STATEMENT AND DIRECT OBS.
[2023-07-15] MEDS ORDERED: ATORVASTATIN 40 MG TAB PO SCH (21:00)
[2023-07-15] MEDS ORDERED: APIXABAN 5 MG TAB PO SCH (21:00)
--- NOTE | 2023-07-15 21:00 | NUR ---
SHIFT ASSESSMENT COMPLETE. SEE [employer] FOR DETAILS. PT RESTING IN BED. PT STATES HE WOULD LIKE TO SLEEP NOW. BLANKETS ADJUSTED PER PT REQUEST. BED IN LOW, LOCKED POSITION WITH BED ALRM ON FOR PT SAFETY. PT VERBALIZES UNDERSTANDING TO USE CALL LIGHT WITH NEEDS. NAD NOTED VIA PT STATEMENT AND DIRECT OBS.
--- NOTE | 2023-07-15 22:08 | NUR ---
PT ASSIST TO BR AND BACK TO BED. PT CONTINUES TO TRY TO GET UP AND WALK TO BR WITHOUT CALLING FOR ASSISTANCE. PT RE-EDUCATED TO NEED TO WAIT FOR ASSISTANCE FOLLOWING FALL CHIEF DEPUTY. PT VERBALIZES UNDERSTANDING AND AGREES TO USE CALL LIGHT WITH NEEDS. PERICARE PROVIDED AND BRIEF CHANGED. PT RESTING IN BED. BED IN LOW, LOCKED POSITION WITH BED ALARM. NAD NOTED VIA PT STATEMENT AND DIRECT OBS.
--- NOTE | 2023-07-15 22:23 | EKG ---
[facility] [address] [place] [address] Signed Sinus rhythm with 1st degree AV block Left axis deviation Nonspecific intraventricular block Inferior infarct (cited on or before 14-MAR-2021) Abnormal ECG When compared with ECG of 18-SEP-2022 07:49, premature supraventricular complexes are no longer present Borderline criteria for Lateral infarct are no longer present Confirmed by Rohan Rivera MD () on 07/15/2023 10:23:32 PM Electronically Signed By: ROHAN RIVERA MD 07/15/232222 PATIENT NAME: DANNA ORDOÑEZ ELVI Electrocardiogram DATE OF : 50 PHYSICIAN: ROHAN RIVERA MD REPORT #: [id number] REPORT IS CONFIDENTIAL AND NOT TO BE RELEASED WITHOUT AUTHORIZATION
--- NOTE | 2023-07-15 23:31 | NUR ---
PT ATTEMPTING TO GET OOB WITHOUT USING CALL LIGHT. BED ALARM ENGAGED WHEN PT SAT UP. PT REQUESTED ASSIST TO BR AND BACK TO BED. ASSIST PROVIDED. PT RETURNED TO BED WITHOUT INCIDENT. PT BEDDING, GOWN AND BRIEF CHANGED. PERICARE PROVIDED. PT DENIES NEEDS AT THIS TIME.PT VERBALIZES UNDERSTANDING TO USE CALL LIGHT WITH NEEDS. PT CONTINUES TO GET OOB WITHOUT USE OF CALL LIGHT FOR HELP. CALL LIGHT, WATER AND PERSONAL ITEMS IN REACH. BED IN LOW, LOCKED POSITION WITH BED ALARM ON. NAD NOTED VIA DIRECT OBS AND CONTINUOUS MONITOR.
[2023-07-16 01:00] VITALS: BP 105/47
--- NOTE | 2023-07-16 01:04 | NUR ---
PT ATTEMPT TO GET OOB. PT REMINDED TO USE CALL LIGHT WHEN BED ALARMED. PT ASSISTED FROM BED TO BR AND BACK TO BED WITHOUT INCIDENT. PT DENIES ADDITIONAL NEEDS. LINENS, GOWN AND BRIEF CHANGED. PERICARE COMPLETED. BED IN LOW, LOCKED POSITION WITH BED ALARM ON. WATER, PERSONAL ITEMS AND CALL LIGHT IN REACH. VSS AND NAD NOTED VIA MONITOR, DIRECT OBS AND PT STATEMENT.
--- NOTE | 2023-07-16 02:02 | NUR ---
PT RESTING IN BED WITH EYES CLOSED. PT EASILY AWAKENED TO VOICE. PT DENIES NEEDS AT THIS TIME. CALL LIGHT AND PERSONAL ITEMS IN REACH. BED INLOW, LOCKED POSITION WITH BED ALARM ON. NAD NOTED VIA DIRECT OBS AND PT STATEMENT.
--- NOTE | 2023-07-16 03:00 | NUR ---
SHIFT ASSESSMENT COMPLETE. SEE [employer] FOR DETAILS. PT REQUESTED AND PROVIDED ASSIST TO BR AND BACK TO BED WITHOUT INCIDENT. PT COMPLETED MARI CARE WITH ASSIST. FULL LINEN CHANGE, BRIEF AND GOWN CHANGE. PT CONTINUES TO GET OOB WITHOUT USING CALL LIGHT. PT RE-EDUCATED TO NEED TO USE CALL LIGHT. BED RETURNED TO LOW, LOCKED POSITION WITH BED ALARM ON. NAD NOTED VIA DIRECT OBS.
--- NOTE | 2023-07-16 03:58 | NUR ---
PT RESTING IN BED WITH EYES CLOSED. PT EASILY AWAKENED TO VOICE. PT DENIES NEEDS AT THIS TIME. CALL LIGHT IN REACH, PERSONAL ITEMS IN REACH, BED IN LOW, LOCKED POSITION WITH BED ALARM ON. NAD NOTED VIA DIRECT OBS AND PT STATEMENT.
[2023-07-16 04:00] VITALS: BP 105/52
--- NOTE | 2023-07-16 04:10 | NUR ---
PT REQUESTED AND PROVIDED ASSIST TO BR AND BACK TO BED. FULL LINEN CHANGE, GOWN AND BRIEF CHANGE REQUIRED DUE TO INCONTINENT URINE. PT ATTEMPTS TO GET OOB AND GO TO BR WITHOUT USING CALL LIGHT. BED ALARM REMAINS ON. BED IN LOW, LOCKED POSITION WITH PERSONAL ITEMS AND CALL LIGHT IN REACH. PT VERBALIZES UNDERSTANDING TO USE CALL LIGHT WITH NEEDS. VSS VIA MONITOR. NAD NOTED VIA PT STATEMENT AND DIRECT OBS.
--- NOTE | 2023-07-16 05:02 | NUR ---
LAB AT BEDSIDE FOR AM DRAW.
[2023-07-16 05:24] LABS: MCH 30.6 (27-36); MCHC 32.9 g/dl (30-36); RDW 15.8 (10.5-15.0)
[2023-07-16 05:26] LABS: BASOPHILS 0.4 % (0-2); EOSINOPHILS 0.7 % (0-6); HEMATOCRIT 33.5 % (35.0-50.0); LYMPHOCYTES 3.4 % (24-44); MONOCYTES 8.4 % (0-12); NEUTROPHILS 87.1 % (39-80); PLATELET COUNT 147 K/uL (140-440)
[2023-07-16 05:38] LABS: ALBUMIN 3.2 g/dL (3.4-5.0); ANION GAP 11.5 (7-21); BILIRUBIN, TOTAL 1.1 ng/dL (0.2-1.0); BUN/CREATININE RATIO 18.75 (6.0-28.6); CALCIUM 8.1 mg/dL (8.5-10.1); CREATININE, SERUM 1.28 mg/dL (0.70-1.30); MAGNESIUM 2.3 mg/dL (1.8-2.4); PHOSPHORUS, INORGANIC 2.7 mg/dL (2.5-4.9); POTASSIUM 3.5 mmol/L (3.5-5.1); PROTEIN, TOTAL 6.4 g/dL (6.4-8.2)
--- NOTE | 2023-07-16 06:08 | NUR ---
PT RESTING IN BED, DENIES NEEDS AT THIS TIME. PT INSTRUCTED TO USE CALL LIGHT WITH NEEDS. BED INLOW, LOCKED POSITION WITH BED ALARM ON.
--- NOTE | 2023-07-16 07:02 | NUR ---
REPORT GIVEN AND CARE ENDORSED TO CARMEN SCRUGGS.
--- NOTE | 2023-07-16 07:20 | NUR ---
report from night nurse briana Neff pt in bed at this time with call light.
--- NOTE | 2023-07-16 07:35 | NUR ---
pt in bed, inc. of urine - assisted to stand and walk to bathroom, attends changed, skin wnl - cleaned, new linenes to bed. pt amb back to room to sit in chair for meal. denies pain. call light in reach.
[2023-07-16] MEDS ORDERED: ASPIRIN 81 MG CHEW PO SCH (08:00)
--- NOTE | 2023-07-16 08:06 | NUR ---
pt up in chair for meal - am meds given - denies pain or any needs, call light in reach and in room. bed linen changed.
[2023-07-16 08:09] VITALS: BP 113/65
[2023-07-16] MEDS ORDERED: dilTIAZem HCL 240 MG CAPCR PO SCH (09:00)
--- NOTE | 2023-07-16 09:25 | NUR ---
dr villeda in room discuss plan of care with pt, and rn, pt wants to dc today after iv abx to go to podiatry appt. dr thompson neuro called pt this am and has f/u appt. with on phone. pt amb walked with standby assist of staff in [facility].
[2023-07-16] MEDS ORDERED: CEFDINIR300 MG PO (09:54)
[2023-07-16] MEDS ORDERED: PHARMACY RENAL DOSE ADJUSTMENT 1 DOSE MISC PO SCH (12:00)
[2023-07-16] MEDS ORDERED: CEFTRIAXONE/SODIUM CHLORIDE 2 GM/100 ML PIGGYBACK IV SCH (12:00)
--- NOTE | 2023-07-16 12:11 | NUR ---
pt up in chair eating lunch - at side, denies needs - iv abx fusing in left arm wnl. call light in reach.
== END 2023-07-16 12:55 | disposition home or self-care (01) ==
LOC: ED 10:55 → CCU 10:57
PROVIDERS: Emergency Medicine; ADMIT Family Medicine; ATTEND Family Medicine
DX: A41.9 Sepsis, unspecified organism (principal); N39.0 Urinary tract infection, site not specified; N17.9 Acute kidney failure, unspecified; G47.33 Obstructive sleep apnea (adult) (pediatric); G20.A1 Parkinson's disease without dyskinesia, without mention of fluctuations; Z91.81 History of falling; Z86.718 Personal history of other venous thrombosis and embolism; Z79.01 Long term (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 anticoagulants; Z79.82 Long term (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 aspirin; Z79.899 Other long term (current) drug therapy
CPT/HCPCS: 36415; 70450; 71045; 74176; 80053; 81001; 83605; 83735; 84100; 85025; 93005; 93010; A9270; J0696; J7030

== ENCOUNTER 2023-07-26 20:42 | Emergency (ER) | payer MEDICARE, OTHER ==
[~2023-07-26] VITALS: Ht 167.6 cm; Wt 93.0 kg
[~2023-07-26 20:42] MED LIST changes: +MULTI VITAMIN1 EACH PO
--- OUTSIDE RECORDS SUMMARY | 2023-07-26 20:50 | XMS ---
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 - 2 Visits in 30 Days CARE PROVIDERS There are no care providers on record at this time. Jair has no Care Guidelines for this patient. Maria L VISIT COUNT (12 MO.) 11 [facility] [address] [facility] TOTAL 11 NOTE: Visits indicate total known visits. ED/C VISIT TRACKING (12 MO.) 07/26/2023 20:43 [facility] [place] TYPE: Emergency COMPLAINT: - LEG WEAKNESS 07/15/2023 10:56 [facility]ISLAINE Alonzo [place] TYPE: Emergency COMPLAINT: - FALL, LEANING RIGHT, HEAVY BREATHING 06/27/2023 01:18 [facility]LA[facility] Alonzo [place] TYPE: Emergency COMPLAINT: - URINE BLOOD DIAGNOSES: - Essential (primary) hypertension - Hematuria, unspecified - Other residential (current) drug therapy - Personal history of transient ischemic attack (TIA), and cerebral infarction without residual deficits - Urinary tract infection, site not specified 06/15/2023 20:59 [facility]on[facility] [place] TYPE: Emergency COMPLAINT: - URINE PROBLEM DIAGNOSES: - Essential (primary) hypertension - Hematuria, unspecified - Other terminal makeup operator (current) drug therapy - Personal history of transient ischemic attack (TIA), and cerebral infarction without residual deficits - Urinary tract infection, site not specified 01/17/2023 04:29 [facility] Alonzo [place] TYPE: Emergency COMPLAINT: - BLOOD IN URINE DIAGNOSES: - Dementia in other diseases classified elsewhere, mild, without behavioral disturbance, psychotic disturbance, mood disturbance, and anxiety - Essential (primary) hypertension - Hematuria, unspecified - marine 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 - senior living (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 aspirin - Other residential (current) drug therapy - Parkinson's disease without dyskinesia, without mention of fluctuations - Urinary tract infection, site not specified - PARKINSON'S DIS W/O DYSKINESIA, W/O MENTION OF FLU 11/08/2022 03:53 [facility]LA[facility] Alonzo [place] TYPE: Emergency COMPLAINT: - CONFUSION DIAGNOSES: - Dizziness and giddiness - Essential (primary) hypertension - marine 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 aspirin - Other residential (current) drug therapy - Parkinson's disease 11/03/2022 19:23 [facility]LA[facility] Alonzo [place] TYPE: Emergency COMPLAINT: - URINE PROBLEM 11/03/2022 10:54 [facility]ISLAINE Alonzo [place] TYPE: Emergency COMPLAINT: - POSS UTI DIAGNOSES: - Dysuria - Essential (primary) hypertension - senior living (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 anticoagulants - marine 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 aspirin - Other residential (current) drug therapy - Personal history of [...] tibial vein - Essential (primary) hypertension - marine 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 - marine 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 aspirin - Other chest pain - Personal history of malignant neoplasm of prostate - Personal history of other venous thrombosis and embolism - Shortness of breath 09/17/2022 16:06 [facility] Alonzo [place] TYPE: Emergency COMPLAINT: - L LEG SWELLING DIAGNOSES: - Acute embolism and thrombosis of unspecified deep veins of left lower extremity - Essential (primary) hypertension - marine 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 aspirin - Other terminal makeup operator (current) drug therapy 09/15/2022 12:37 [facility]LA[facility] Alonzo [place] TYPE: Emergency COMPLAINT: - SOB, SWOLLEN FEET DIAGNOSES: - Heart failure, unspecified - Hypertensive heart disease with heart failure - senior living (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 aspirin - Other residential (current) drug therapy - Personal history of transient ischemic attack (TIA), and cerebral infarction without residual deficits - Shortness of breath INPATIENT VISIT TRACKING (12 MO.) 07/15/2023 10:57 [facility]LA[facility] Alonzo [place] TYPE: Observation COMPLAINT: - UTI, WEAKNESS DIAGNOSES: - Acute kidney failure, unspecified - History of falling - senior living (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 anticoagulants - marine 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 aspirin - Obstructive sleep apnea (adult) (pediatric) - Other terminal makeup operator (current) drug therapy - Parkinson's disease without dyskinesia, without mention of fluctuations - Personal history of other venous thrombosis and embolism - Sepsis, unspecified organism - Urinary tract infection, site not specified 11/03/2022 19:24 [facility]ISLAINE Alonzo [place] TYPE: Observation COMPLAINT: - UTI DIAGNOSES: - Acquired absence of other genital organ(s) - Hyperlipidemia, unspecified - Parkinson's disease - Urinary tract infection, site not specified [id number]
[2023-07-26 21:15] LABS: BILIRUBIN, URINE NEGATIVE (negative); BLOOD/HGB, URINE TRACE-I (Negative); KETONE, URINE NEGATIVE (Negative); LEUK ESTERASE, URINE NEGATIVE (negative); NITRITE, URINE NEGATIVE (negative); PH, URINE 6.5 (5-7)
[2023-07-26 21:30] LABS: BASOPHILS 1.4 % (0-2); EOSINOPHILS 1.9 % (0-6); HEMATOCRIT 35.4 % (35.0-50.0); HEMOGLOBIN 11.7 g/dL (12.0-18.0); LYMPHOCYTES 7.4 % (24-44); MCH 30.4 (27-36); MCHC 33.2 g/dl (30-36); MCV 91.7 fl (81-99); MONOCYTES 7.8 % (0-12); NEUTROPHILS 81.5 % (39-80); PLATELET COUNT 209 K/uL (140-440); RBC 3.86 M/ul (4.3-5.7); RDW 15.3 (10.5-15.0)
[2023-07-26 21:36] LABS: BACTERIA, URINE NONE SEEN /hpf (negative); CASTS, URINE NONE SEEN \\lpf; COLLECTION TYPE, URINE CLEAN CATCH; EPITHELIAL CELLS, URINE NS /lpf (0-1+); REFLEX CULTURE, URINE No (No)
[2023-07-26 21:50] LABS: ALBUMIN 3.6 g/dL (3.4-5.0); ALBUMIN/GLOBULIN RATIO 1.09 (1.1-2.4); ANION GAP 13.7 (7-21); BILIRUBIN, TOTAL 0.7 ng/dL (0.2-1.0); BUN/CREATININE RATIO 19.31 (6.0-28.6); CALCIUM 8.8 mg/dL (8.5-10.1); CREATININE, SERUM 1.45 mg/dL (0.70-1.30); POTASSIUM 3.7 mmol/L (3.5-5.1); PROTEIN, TOTAL 6.9 g/dL (6.4-8.2)
[2023-07-26 21:53] LABS: LACTIC ACID, BLOOD 1.1 mmol/L (0.4-2.0)
[2023-07-26 22:48] VITALS: BP 119/73
== END 2023-07-26 22:46 | disposition home or self-care (01) ==
LOC: ED 20:42
PROVIDERS: Family Medicine
DX: R53.1 Weakness (principal); I10 Essential (primary) hypertension; Z86.73 Personal history of transient ischemic attack (TIA), and cerebral infarction without residual deficits; Z79.899 Other long term (current) drug therapy; Z79.01 Long term (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 anticoagulants
CPT/HCPCS: 36415; 80053; 81001; 83605; 85025; 99283

== ENCOUNTER 2023-08-02 21:19 | Emergency (ER) | payer MEDICARE, OTHER ==
[~2023-08-02] VITALS: Ht 167.6 cm; Wt 95.4 kg
--- OUTSIDE RECORDS SUMMARY | 2023-08-02 21:27 | XMS ---
PreManage Notification: DANNA ORDOÑEZ Security Template Inspector Events No recent Security Events currently on file CRITERIA MET - [facility] - 2 Visits in 30 Days CARE PROVIDERS There are no care providers on record at this time. Jair has no Care Guidelines for this patient. Maria L [facility] MO.) [facility] NOTE: Visits indicate total known visits. ED/C VISIT TRACKING (12 MO.) [facility]23 [facility] COMPLAINT: - BLOOD IN URINE 07/26/2023 20:43 [facility] [place] TYPE: Emergency COMPLAINT: - LEG WEAKNESS DIAGNOSES: - Essential (primary) hypertension - [employer] (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 anticoagulants - Other group home (current) drug therapy - Personal history of transient ischemic attack (TIA), and cerebral infarction without residual deficits - Weakness 07/15/2023 10:56 [facility] [place] TYPE: Emergency COMPLAINT: - FALL, LEANING RIGHT, HEAVY BREATHING 06/27/2023 01:18 [facility] [place] TYPE: Emergency COMPLAINT: - URINE BLOOD DIAGNOSES: - Essential (primary) hypertension - Hematuria, unspecified - Other group home (current) drug therapy - Personal history of transient ischemic attack (TIA), and cerebral infarction without residual deficits - Urinary tract infection, site not specified 06/15/2023 20:59 [facility] [facility] [place]: Emergency COMPLAINT: - URINE PROBLEM DIAGNOSES: - Essential (primary) hypertension - Hematuria, unspecified - Other [employer] (current) drug therapy - Personal history of transient ischemic attack (TIA), and cerebral infarction without residual deficits - Urinary tract infection, site not specified 01/17/2023 04:29 [facility] [place] TYPE: Emergency COMPLAINT: - BLOOD IN URINE DIAGNOSES: - Dementia in other diseases classified elsewhere, mild, without behavioral disturbance, psychotic disturbance, mood disturbance, and anxiety - Essential (primary) hypertension - Hematuria, unspecified - prison (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 anticoagulants - [employer] (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 aspirin - Other [employer] (current) drug therapy - Parkinson's disease without dyskinesia, without mention of fluctuations - Urinary tract infection, site not specified - PARKINSON'S DIS W/O DYSKINESIA, W/O MENTION OF FLU 11/08/2022 03:53 [facility] [place] TYPE: Emergency COMPLAINT: - CONFUSION DIAGNOSES: - Dizziness and giddiness - Essential (primary) hypertension - prison (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 aspirin - Other [employer] (current) drug therapy - Parkinson's disease 11/03/2022 19:23 [facility] [place] TYPE: Emergency COMPLAINT: - URINE PROBLEM 11/03/2022 10:54 [facility] [place] TYPE: Emergency COMPLAINT: - POSS UTI DIAGNOSES: - Dysuria - Essential (primary) hypertension - [employer] (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 anticoagulants - equipment [employer] (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 aspirin - Other [employer] (current) drug therapy - Personal history of [...] tibial vein - Essential (primary) hypertension - equipment [employer] (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 anticoagulants - prison (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 aspirin - Other chest pain - Personal history of malignant neoplasm of prostate - Personal history of other venous thrombosis and embolism - Shortness of breath 09/17/2022 16:06 [facility] [place] TYPE: Emergency COMPLAINT: - L LEG SWELLING DIAGNOSES: - Acute embolism and thrombosis of unspecified deep veins of left lower extremity - Essential (primary) hypertension - equipment [employer] (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 aspirin - Other equipment [employer] (current) drug therapy 09/15/2022 12:37 [facility] [place] TYPE: Emergency COMPLAINT: - SOB, SWOLLEN FEET DIAGNOSES: - Heart failure, unspecified - Hypertensive heart disease with heart failure - prison (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 aspirin - Other equipment [employer] (current) drug therapy - Personal history of transient ischemic attack (TIA), and cerebral infarction without residual deficits - Shortness of breath INPATIENT VISIT TRACKING (12 MO.) 07/15/2023 10:57 [facility] [place] TYPE: Observation COMPLAINT: - UTI, WEAKNESS DIAGNOSES: - Acute kidney failure, unspecified - History of falling - prison (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 anticoagulants - [employer] (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 aspirin - Obstructive sleep apnea (adult) (pediatric) - Other equipment [employer] (current) drug therapy - Parkinson's disease without dyskinesia, without mention of fluctuations - Personal history of other venous thrombosis and embolism - Sepsis, unspecified organism - Urinary tract infection, site not specified 11/03/2022 19:24 [facility] [place] TYPE: Observation COMPLAINT: - UTI DIAGNOSES: - Acquired absence of other genital organ(s) - Hyperlipidemia, unspecified - Parkinson's disease - Urinary tract infection, site not specified [email or web address]
[2023-08-02 21:48] LABS: BILIRUBIN, URINE NEGATIVE (negative); BLOOD/HGB, URINE LARGE (Negative); KETONE, URINE NEGATIVE (Negative); LEUK ESTERASE, URINE NEGATIVE (negative); NITRITE, URINE NEGATIVE (negative)
[2023-08-02 22:03] LABS: BACTERIA, URINE RARE /hpf (negative); CASTS, URINE NONE SEEN \\lpf; COLLECTION TYPE, URINE CLEAN CATCH; CRYSTALS, URINE NONE SEEN (0-1+); EPITHELIAL CELLS, URINE NS /lpf (0-1+); RED BLOOD CELLS, URINE 41-50 /hpf (0-5); REFLEX CULTURE, URINE No (No)
[2023-08-02 22:08] LABS: BASOPHILS 1.4 % (0-2); EOSINOPHILS 2.2 % (0-6); HEMATOCRIT 36.1 % (35.0-50.0); HEMOGLOBIN 11.8 g/dL (12.0-18.0); LYMPHOCYTES 9.4 % (24-44); MCH 30.1 (27-36); MCHC 32.8 g/dl (30-36); MCV 91.7 fl (81-99); MONOCYTES 9.7 % (0-12); NEUTROPHILS 77.3 % (39-80); PLATELET COUNT 200 K/uL (140-440); RBC 3.93 M/ul (4.3-5.7); RDW 15.8 (10.5-15.0)
[2023-08-02 22:17] LABS: ALBUMIN 3.6 g/dL (3.4-5.0); ALBUMIN/GLOBULIN RATIO 1.13 (1.1-2.4); ANION GAP 12.5 (7-21); BILIRUBIN, TOTAL 0.8 ng/dL (0.2-1.0); BUN/CREATININE RATIO 20.58 (6.0-28.6); CALCIUM 8.2 mg/dL (8.5-10.1); CREATININE, SERUM 1.36 mg/dL (0.70-1.30); POTASSIUM 3.5 mmol/L (3.5-5.1); PROTEIN, TOTAL 6.8 g/dL (6.4-8.2)
[2023-08-02] MEDS ORDERED: DIVALPROEX SODIUM 500 MG TABEC PO ONE (22:45)
[2023-08-02 22:58] VITALS: BP 126/74
== END 2023-08-02 22:59 | disposition home or self-care (01) ==
LOC: ED 21:19
PROVIDERS: Family Medicine
DX: R31.9 Hematuria, unspecified (principal); I10 Essential (primary) hypertension; G20.A1 Parkinson's disease without dyskinesia, without mention of fluctuations; Z79.01 Long term (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 anticoagulants; Z79.82 Long term (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 aspirin; Z79.899 Other long term (current) drug therapy
CPT/HCPCS: 36415; 80053; 81001; 85025

== ENCOUNTER 2023-09-15 10:46 | Day surgery (SDC) | payer MEDICARE, OTHER ==
[~2023-09-15] VITALS: Ht 167.6 cm; Wt 94.5 kg
[~2023-09-15 10:46] MED LIST changes: +AMPICILLIN SOD 2 GM in SODIUM CHLORIDE 0.9% 100 ML IV SCH; +GENTAMICIN SULFATE 80 MG in SODIUM CHLORIDE 0.9% 100 ML IV SCH; +IBLOOD GLUCOSE TEST STRIP 1 EA TEST VI PRN; +LACTATED RINGER'S 1,000 ML IV SCH; +LIDOCAINE HCL 1% 5 ML SDV INJ ONE
[2023-09-15 11:22] VITALS: BP 135/68
[2023-09-15] MEDS ORDERED: CEPHALEXIN500 M1 PO (11:32)
[2023-09-15] MEDS ORDERED: propofoL 200 MG/20 ML VIAL ONE (14:43)
[2023-09-15] MEDS ORDERED: LACTATED RINGER'S 1,000 ML IV ONE (15:41)
[2023-09-15 16:33] VITALS: BP 121/66
--- NOTE | 2023-09-15 16:58 | NUR ---
09/15/23 1658 Elva Godinez 1542 PT ARRIVED IN PACU NON RESPONSIVE TO NOXIOUS STIMULI WITH OPA IN PLACE. ABD SOFT AND PASSING FLATUS. 1602 PT REACTIVE. OPA REMOVED. 1615 OXYGEN REMOVED. PT AWAKENS TO VERBAL STIMULI, THEN FALLS BACK TO SLEEP. 1630 SITTING AT SIDE OF BED. INCONTINENT OF LG AMOUUNT OF URINE. CLEANED PT UP AND ATTENDS PLACED. HELPED PT DRESS. 1648 DC INSTRUCTIONS GIVEN TO PT/SPOUSE. ALL QUESTIONS ANSWERED. LEFT VIA W/C.
--- NOTE | 2023-09-16 13:31 | OR ---
[facility] [address] [place], [place] [address] Signed DATE OF OPERATION: 09/15/2023 SURGEON: Missael Hickman MD PREOPERATIVE DIAGNOSES: 1. History of colon polyps. 2. Marked debility; Parkinson's disease, aortic valve replacement, chronic anticoagulation. POSTOPERATIVE DIAGNOSIS: Polyp of cecum and sigmoid. PROCEDURE: Total colonoscopy to cecum with cold morcellation polypectomy x1 and cold snare polypectomy x1. ANESTHESIA: Intravenous sedation, propofol infusion, Missael Chester CRNA. INDICATION: This markedly debilitated 73-year-old white man is a patient Dr. Field and known to me from the past having undergone colonoscopy and found to have polyps excised in 2012. At that time, he had two hyperplastic polyps. He currently has no symptoms of bleeding, diarrhea, or constipation and no family history of colon cancer. He does have a history of cerebrovascular accident in 2019 and deep venous thrombosis in 2021. He has had aortic valve replacement in 2019. He is currently on Eliquis. He is admitted at this time to undergo surveillance colonoscopy on the basis of his history and in spite of his underlying medical comorbidities. He has been treated with ampicillin and gentamicin as aortic valve prophylaxis, has been off his Eliquis and is on bridge therapy with Lovenox. He understands as does his the risk of bleeding, infection, and perforation related to colonoscopy and wished to proceed. FINDINGS: The prep was adequate. Complete colonoscopy was undertaken to the cecum. There was a small sessile polyp of the cecum, which was excised with cold snare technique. Another small polyp of the sigmoid excised with cold morcellation technique. There were no other findings of note other than diverticular changes. DESCRIPTION OF PROCEDURE: The patient was brought to the endoscopy suite and given full cardiopulmonary monitoring Electronically Signed By: MISSAEL HICKMAN MD 09/16/23 1331 PATIENT NAME: DANNA ORDOÑEZ OPERATIVE REPORT DATE OF : 50 REPORT #: [id number] PHYSICIAN: MISSAEL HICKMAN MD PCP: LUIS FIELD MD REPORT IS CONFIDENTIAL AND NOT TO BE RELEASED WITHOUT AUTHORIZATION [facility] [address] [place], [place] [address] Signed and sedated with propofol by the sheet metal technician. Preoperative antibiotic ampicillin and gentamicin had been administered. He has been off Eliquis. Digital rectal examination was reasonably normal. An Olympus video colonoscope was passed in the rectum and manipulated throughout the colon irrigating as we needed. In the cecum, there was a small sessile polyp, this was excised with cold snare technique. Only a portion of the polyp was retrieved, the other was lost despite use of a trap and so forth. The scope was withdrawn from that point and examination undertaken showed some diverticula of the sigmoid and left colon and a small polyp of the sigmoid, which was excised with cold morcellation technique. Further withdrawal showed no other abnormalities. Scope was removed and the patient was taken to the recovery room in good condition. CONCLUSION DIAGNOSIS: Polyps x2. PLAN: He will be considered for repeat colonoscopy in 5 years if clinically appropriate. Continued management of anticoagulation perioperatively will be outlined to family. He will return to the ongoing care of Dr. Field. Missael Hickman MD JM/MODL /[id number] cc: Dr. Field Copies: ~ Electronically Signed By: IMSSAEL HICKMAN MD 09/16/23 1331 PATIENT NAME: DANNA ORDOÑEZ BELLS OPERATIVE REPORT DATE OF : 50 REPORT #: [id number] PHYSICIAN: MISSAEL HICKMAN MD PCP: LUIS FIELD MD REPORT IS CONFIDENTIAL AND NOT TO BE RELEASED WITHOUT AUTHORIZATION
--- NOTE | 2023-09-18 11:34 | PATH ---
[facility] [address] [place], [place] [address] Signed SPECIMEN(S): A CECUM COLON POLYP SPECIMEN(S): B SIGMOID POLYP SPECIMEN SOURCE: A. CECUM COLON POLYP B. SIGMOID POLYP CLINICAL HISTORY: History of polyps. Post: Polyp x2/diverticulosis. FINAL PATHOLOGIC DIAGNOSIS: A. Cecal polyp, biopsy: - Small tubular adenoma. B. Sigmoid polyp, biopsy: - Tubular adenoma. AMB MICROSCOPIC EXAMINATION: Histologic sections of all submitted blocks are examined by light microscopy. These findings, together with the gross examination, support the pathologic diagnosis. GROSS DESCRIPTION: A. The specimen, labeled and designated "Jose, Ángel, cecum colon polyp," is received in formalin and consists of five thorne soft tissue fragments, ranging from 0.1-0.5 cm. Entirely submitted in (A1). B. The specimen, labeled and designated "Garcia, Ángel, sigmoid polyp," is received in formalin and consists of two thorne soft tissue fragments, ranging from 0.2-0.3 cm. Entirely submitted in (B1). HS (under the direct supervision of a pathologist) The Gross Description was prepared using a voice recognition system. The report was reviewed for accuracy; however, sound-alike word errors, addition and/or deletions may occur. If there is any question about this report, please contact Client Services. ADDITIONAL NOTES: Immunohistochemical and/or in situ hybridization studies if performed in this case included appropriate positive controls that reacted as expected. This test was developed and its performance characteristics determined by [facility]. It has not been cleared or approved by the U.S. Food and Drug Administration. The FDA has determined that PATIENT NAME: DANNA GARCIA PATHOLOGY DATE OF : 50 REPORT #: [id number] PHYSICIAN: ENZO HOUSTON PCP: LUIS FIELD MD REPORT IS CONFIDENTIAL AND NOT TO BE RELEASED WITHOUT AUTHORIZATION [facility] [address] [facility] [place] [address] Signed such clearance or approval is not necessary. This test is used for clinical purposes. It should not be regarded as investigational or for research. [facility] is certified under the Clinical Laboratory Improvement Amendments of 1988 (CLIA) as qualified to perform high complexity clinical laboratory testing. PERFORMING LABORATORY: Technical component was performed by [facility], [address] [place] [address] (CLIA# [id number]). Diagnostician: Zayra Britt MD Pathologist Electronically Signed 09/18/2023 Copies: ~ PATIENT NAME: DANNA GARCIA PATHOLOGY DATE OF : 50 REPORT #: [id number] PHYSICIAN: ENZO HOUSTON PCP: LUIS FIELD MD REPORT IS CONFIDENTIAL AND NOT TO BE RELEASED WITHOUT AUTHORIZATION
== END 2023-09-15 16:48 | disposition home or self-care (01) ==
LOC: DS 10:46 → OPS 10:46 → DS 12:00 → OPS 13:00
PROVIDERS: ATTEND Surgery
PROC: 0DBN8ZX Excision of Sigmoid Colon, Via Natural or Artificial Opening Endoscopic, Diagnostic (ICD-10-PCS; 2023-09-15)
PROC: 0DBH8ZX Excision of Cecum, Via Natural or Artificial Opening Endoscopic, Diagnostic (ICD-10-PCS; principal; 2023-09-15 13:20)
DX: Z12.11 Encounter for screening for malignant neoplasm of colon (principal); D12.0 Benign neoplasm of cecum; D12.5 Benign neoplasm of sigmoid colon; G47.33 Obstructive sleep apnea (adult) (pediatric); G20.A1 Parkinson's disease without dyskinesia, without mention of fluctuations; Z85.46 Personal history of malignant neoplasm of prostate
CPT/HCPCS: 00811; J0290; J1580; J2704; J7121

== ENCOUNTER 2024-09-27 18:42 | Emergency (ER) | payer MEDICARE, OTHER ==
[~2024-09-27] VITALS: Ht 167.6 cm; Wt 80.0 kg
[~2024-09-27 18:42] MED LIST changes: -AMPICILLIN SOD 2 GM in SODIUM CHLORIDE 0.9% 100 ML IV SCH; +ASPIRIN325 MG PO; -GENTAMICIN SULFATE 80 MG in SODIUM CHLORIDE 0.9% 100 ML IV SCH; -IBLOOD GLUCOSE TEST STRIP 1 EA TEST VI PRN; +K-TAB ER20 MEQ PO; -LACTATED RINGER'S 1,000 ML IV SCH; -LIDOCAINE HCL 1% 5 ML SDV INJ ONE
[2024-09-27] MEDS ORDERED: CARBIDOPA-LEVO1 EAC1 PO (19:06)
[2024-09-27] MEDS ORDERED: DONEPEZIL HCL5 MG PO (19:06)
[2024-09-27] MEDS ORDERED: CEPHALEXIN500 MG PO (19:07)
[2024-09-27 19:32] LABS: BLOOD/HGB, URINE LARGE (Negative); KETONE, URINE NEGATIVE (Negative); LEUK ESTERASE, URINE SMALL (negative); NITRITE, URINE NEGATIVE (negative)
[2024-09-27 19:34] LABS: BACTERIA, URINE RARE /hpf (negative); CASTS, URINE NONE SEEN \\lpf; CRYSTALS, URINE NONE SEEN (0-1+); EPITHELIAL CELLS, URINE SQUAMOUS 1+ /lpf (0-1+); REFLEX CULTURE, URINE Yes (No)
[2024-09-27 19:35] LABS: BASOPHILS 0.4 % (0.2-1.2); EOSINOPHILS 1.4 % (0.8-7.0); LYMPHOCYTES 6.3 % (21.8-53.1); MCH 30.5 PG (25.7-32.2); MCHC 32.5 g/dL (32.3-36.5); MCV 94.0 fL (79.0-92.2); MONOCYTES 7.1 % (5.3-12.2); NEUTROPHILS 84.5 % (34.0-67.9); RBC 3.83 M/uL (4.63-6.08)
[2024-09-27 19:45] LABS: INR 1.26 (0.80-1.30); PROTIME 15.0 Sec (11.2-14.2)
[2024-09-27 19:50] LABS: AST (SGOT) 36.0 U/L (15-37); GLOMERULAR FILTRATION RATE,EST 49.0 mL/min (>60); PROTEIN, TOTAL 7.1 g/dL (6.4-8.2); UREA NITROGEN 29.0 mg/dL (7-18)
[2024-09-27 20:00] LABS: ALT (SGPT) 5.0 U/L (14-59)
[2024-09-27] MEDS ORDERED: NITROFURANTOIN MONOHYD MACROCR 100 MG CAP PO ONE (20:30)
[2024-09-27 21:20] VITALS: BP 137/73
[2024-09-27] MEDS ORDERED: NITROFURANTOIN MONOHYD MACROCR 100 MG HOME.PACK PO ONE (21:30)
== END 2024-09-27 21:48 | disposition home or self-care (01) ==
LOC: ED 18:42
PROVIDERS: Internal Medicine
DX: N39.0 Urinary tract infection, site not specified (principal); R31.9 Hematuria, unspecified; I10 Essential (primary) hypertension; G47.33 Obstructive sleep apnea (adult) (pediatric); G20.A1 Parkinson's disease without dyskinesia, without mention of fluctuations; Z90.79 Acquired absence of other genital organ(s); Z85.46 Personal history of malignant neoplasm of prostate; Z86.718 Personal history of other venous thrombosis and embolism; Z79.01 Long term (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 anticoagulants; Z79.82 Long term (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 aspirin; Z79.899 Other long term (current) drug therapy
CPT/HCPCS: 36415; 74176; 80053; 81001; 85025; 85610; 87088; 99284-25